=== PATIENT | male | born 1950 | race Caucasian/White ===

== ENCOUNTER 2018-06-07 11:40 | Inpatient (IN) | payer OTHER ==
[2018-06-07] MEDS ORDERED: NS 2,300 ML IV ONE (12:16)
--- NOTE | 2018-06-07 12:19 | EDPHY ---
H & P Stated Complaint: cough productive with sats 82% at pcp Time Seen by Provider: 06/07/18 12:08 HPI/ROS: CHIEF COMPLAINT: Hypoxia HISTORY OF PRESENT ILLNESS: The patient is an 89-year-old man who denies having any significant past medical history and is not on any medications. He and his have had viral type symptoms over the weekend that began on Thursday. He states that his symptoms worsened today. He presented to his primary care doctor and there was found to be 82% on room air. He did have an episode of vomiting on Thursday but has not had any nausea vomiting since. No diarrhea. No fevers. He has had sinus congestion and a mild sore throat. is also sick with similar symptoms but not as severe. Denies cardiac or pulmonary history. Severity: Moderate Modifying factors: None REVIEW OF SYSTEMS: Constitutional: denies: chills, fever, recent illness, recent injury EENTM: denies: blurred vision, double vision, nose congestion Respiratory: See HPI Cardiac: denies: chest pain, irregular heart rate, lightheadedness, palpitations Gastrointestinal/Abdominal: denies: abdominal pain, diarrhea, nausea, vomiting, blood streaked stools Genitourinary: denies: dysuria, frequency, hematuria, pain Musculoskeletal: denies: joint pain, muscle pain Skin: denies: lesions, rash, jaundice, bruising Neurological: denies: headache, numbness, paresthesia, tingling, dizziness, weakness Hematologic/Lymphatic: denies: blood clots, easy bleeding, easy bruising Immunologic/allergic: denies: HIV/AIDS, transplant 10 systems reviewed and negative except as noted EXAM: GENERAL: Well-appearing, well-nourished and in no acute distress. HEAD: Atraumatic, normocephalic. EYES: Pupils equal round and reactive to light, extraocular movements intact, sclera anicteric, conjunctiva are normal. ENT: TMs normal, nares patent, oropharynx clear without exudates. Moist mucous membranes. NECK: Normal range of motion, supple without lymphadenopathy or JVD. LUNGS: Bilateral rhonchi HEART: Regular rate and rhythm without murmurs, rubs or gallops. ABDOMEN: Soft, nontender, normoactive bowel sounds. No guarding, no rebound. No masses appreciated. BACK: No CVA tenderness, no spinal tenderness, step-offs or deformities EXTREMITIES: Normal range of motion, no pitting or edema. No clubbing or cyanosis. NEUROLOGICAL: Cranial nerves II through XII grossly intact. Normal speech, normal gait. 5/5 strength, normal movement in all extremities, normal sensation , normal reflexes PSYCH: Normal mood, normal affect. SKIN: Warm, dry, normal turgor, no visible rashes or lesions. Source: Patient, Family, RN/MD Exam Limitations: No limitations - Personal History Current Tetanus Diphtheria and Acellular Pertussis (TDAP): Yes - Medical/Surgical History Hx Asthma: No Hx Chronic Respiratory Disease: No Hx Diabetes: No Hx Cardiac Disease: No Hx Renal Disease: No Hx Cirrhosis: No Hx Alcoholism: No Hx HIV/AIDS: No Hx Splenectomy or Spleen Trauma: No Other PMH: denies - Family History Significant Family History: No pertinent family hx - Social History Smoking Status: Former smoker Alcohol Use: None Constitutional: Initial Vital Signs Temperature (C) 36.9 C 06/07/18 11:45 Heart Rate 90 06/07/18 11:45 Respiratory Rate 18 06/07/18 11:45 Blood Pressure 114/85 H 06/07/18 11:45 O2 Sat (%) 90 L 06/07/18 11:45 O2 Delivery Mode Nasal Cannula O2 (L/minute) 3 Allergies/Adverse Reactions: No Known Allergies Allergy (Verified 06/07/18 13:11) Home Medications: Medication Instructions Recorded NK [No Known Home Meds] 06/07/18 Medical Decision Making - Diagnostics Imaging: Discussed imaging studies w/ logistic specialist Radiologist ED Course/Re-evaluation: Patient has pneumonia on chest x-ray and lactate is greater than 2. Have discussed the case with Dr. Rm who will admit. Sepsis bolus ordered. Antibiotics ordered. Differential Diagnosis: Partial list of the Differential diagnosis considered include but were not limited to; pneumonia, sepsis, severe sepsis, influenza and although unlikely based on the history and physical exam, I also considered pneumothorax, acute coronary disease, PE. - Data Points Laboratory Results: Laboratory Results 06/07/18 12:20 06/07/18 12:20 06/07/18 04:22 Urine Legionella Ag Pending Ur Strep pneumoniae Ag Pending Microbiology Results: MICROBIOLOGY 06/07/18 12:20 Blood Blood Culture - Preliminary Gram Positive Cocci In Pairs 06/07/18 06:10 Sputum, Induced/Suctioned - Final 06/07/18 12:41 Blood Blood Culture - Preliminary Gram Positive Cocci In Pairs 06/07/18 12:41 Blood Blood Panel (PCR) - Final Streptococcus Pneumoniae Medications Given: Acetaminophen (Tylenol) 650 mg PO Q4HRS PRN PRN Reason: Pain, Mild/Fever, Can Take PO Stop: 12/04/18 13:17 Last Admin: 06/08/18 00:41 Dose: 650 mg Hydrocodone Bitart/Acetaminophen ([place] 5/325) 1 - 2 tab PO Q4HRS PRN PRN Reason: Pain, Moderate Able to Take PO Stop: 06/17/18 13:17 Last Admin: 06/07/18 15:41 Dose: 1 tab Albuterol (Proventil Neb) 3 ml IH Q2HRS PRN PRN Reason: Short of Breath/Dyspnea Stop: 12/04/18 13:17 Last Admin: 06/07/18 22:29 Dose: 3 ml Albuterol/Ipratropium (Duoneb) 3 ml IH QID SRIRAM Stop: 12/04/18 15:59 Last Admin: 06/08/18 11:38 Dose: 3 ml Enoxaparin Sodium (Lovenox) 40 mg SC DAILY SRIRAM Stop: 12/05/18 08:59 Last Admin: 06/08/18 08:28 Dose: Not Given Sodium Chloride (Ns) 1,000 mls @ 125 mls/hr IV CONT SRIRAM Stop: 12/04/18 13:29 Last Admin: 06/07/18 15:42 Dose: 1,000 mls Azithromycin 500 mg/ Sodium (Chloride) 255 mls @ 255 mls/hr IV DAILY SRIRAM PRN Reason: Protocol Stop: 07/08/18 08:59 Last Admin: 06/08/18 08:26 Dose: 255 mls Ceftriaxone Sodium 2 gm/ (Sodium Chloride) 50 mls @ 100 mls/hr IV DAILY SRIRAM PRN Reason: Protocol Stop: 07/08/18 08:59 Last Admin: 06/08/18 09:39 Dose: 50 mls Methylprednisolone Sodium Succinate (Solu-Medrol) 60 mg IVP Q6HRS SRIRAM Stop: 12/05/18 05:59 Last Admin: 06/08/18 11:46 Dose: 60 mg Multivitamins (Tab-A-Vianca) 1 each PO DAILY SRIRAM Stop: 12/05/18 08:59 Last Admin: 06/08/18 08:27 Dose: 1 each Discontinued Medications Albuterol (Proventil Neb) 3 ml IH ONCE ONE Stop: 06/07/18 23:32 Last Admin: 06/07/18 23:40 Dose: 3 ml Sodium Chloride (Ns) 2,300 mls @ 4,600 mls/hr 30 ml/kg infuse over 30 min ( 2300 ml) IV EDNOW ONE PRN Reason: Protocol Stop: 06/07/18 12:45 Last Admin: 06/07/18 12:42 Dose: 2,300 mls Ceftriaxone Sodium/Dextrose (Rocephin 1 Gm (Premix)) 50 mls @ 100 mls/hr IV EDNOW ONE PRN Reason: Protocol Stop: 06/07/18 13:25 Last Admin: 06/07/18 13:09 Dose: 50 mls Azithromycin 500 mg/ Sodium (Chloride) 255 mls @ 255 mls/hr IV EDNOW ONE Stop: 06/07/18 14:14 Last Admin: 06/07/18 13:38 Dose: 255 mls Ceftriaxone Sodium/Dextrose (Rocephin 1 Gm (Premix)) 50 mls @ 100 mls/hr IV DAILY SRIRAM PRN Reason: Protocol Stop: 07/08/18 08:59 Last Admin: 06/08/18 09:33 Dose: Not Given Methylprednisolone Sodium Succinate (Solu-Medrol) 125 mg IVP ONCE ONE Stop: 06/07/18 22:25 Last Admin: 06/07/18 22:51 Dose: 125 mg Temazepam (Restoril) 15 mg PO HS PRN PRN Reason: Sleep/Insomnia Stop: 12/04/18 17:11 Last Admin: 06/07/18 21:18 Dose: 15 mg Departure - Departure Disposition: [facility] Acute Clinical Impression: Severe sepsis Right lower lobe pneumonia Qualifiers: Pneumonia type: due to unspecified organism Qualified Code(s): J18.1 - Lobar pneumonia, unspecified organism Condition: Fair
[2018-06-07 12:33] LABS: PLATELET COUNT 203 10^3/uL (150-400)
[2018-06-07 12:43] LABS: INR 1.12 (0.83-1.16)
[2018-06-07] MEDS ORDERED: AZITHROMYCIN IV 500 MG in D5W 250 ML IV ONE (12:57)
[2018-06-07] MEDS ORDERED: AZITHROMYCIN IV 500 MG in NS 250 ML IV ONE (13:15)
[2018-06-07] MEDS ORDERED: HYDROCODONE/APAP 5/325 TAB PO PRN (13:18)
[2018-06-07] MEDS ORDERED: PROMETHAZINE HCL 25 MG/ML INJ IVP PRN (13:18)
[2018-06-07] MEDS ORDERED: ALBUTEROL 3 ML DEYVIAL IH PRN (13:18)
[2018-06-07] MEDS ORDERED: NS 1,000 ML IV SCH (13:30)
--- NOTE | 2018-06-07 13:45 | PDGENHP ---
History and Physical History and Physical: Chief complaint: shortness of breath, cough History of present illness: The patient is a 67-year-old male who was referred to the ED by his PCP after being seen in the clinic today and was found to have SpO2 88% on room air. The patient had developed a productive cough, fever, chills, fatigue, and vomiting 5 days ago. He complains of aching pain throughout his torso. Symptoms have progressively worsened with time and are worse with lying down at night. He complains that he has not been able to eat, drink, or sleep in 3 days because he is in so much discomfort. He denies choking on food or having symptoms of acid reflux. He has not experienced these symptoms in the past. He has not had a pneumonia or influenza vaccine in the past. He denies any known sick contacts. He recently took a course of azithromycin for post-viral bronchitis after going to an Urgent Care, but it did not help. Past medical history: Childhood asthma. Past surgical history: No known surgeries. Medications: No medications. Allergies: No known allergies. Social history: Former smoker (40py). , lives with . Retired. Alcohol - occasional use. Drugs - denies use. Family history: Alzheimer's disease, valvular heart disease. Review of systems: 10 point review of systems was conducted and is negative except per HPI Physical exam: Vitals: Reviewed General: The patient is a male who is A&Oand in mild acute distress. HEENT: normocephalic, extraocular movements intact, conjunctivae clear. Nares and oral mucosa pink and moist. Neck: trachea midline, no visible masses, no external lesions. CV: +S1/S2, reg rate and rhythm. No murmurs/rubs/gallops. Resp: unlabored breathing, lungs clear to auscultation with some rales and wheezing in the right lower lobe anteriorly and posteriorly. +chest wall tenderness and back tenderness. Abd: soft and mildly distended, bowel sounds present. + tender to palpation throughout. Musculoskeletal: Normal muscle tone and bulk. Neuro: cranial nerves II - XII grossly intact. Intact gross motor and sensory function. Psych: appropriate mood/affect. Skin: No rash or ecchymoses. : + suprapubic tenderness and + CVA tenderness. Heme/lymph: No peripheral edema. Labs: BMP pending. Lactic acid 2.4, 2.0. INR 1.12. WBC 8.4 for hemoglobin 14.8 hematocrit 41.5 platelets 203. Other Data: Chest x-ray (personally interpreted)-RLL consolidation/small pleural effusion and RML/LLL infiltrates consistent with pneumonia. Bronchitis. Impression and plan: Acute hypoxemic respiratory failure, on 3L O2 Acute community acquired pneumonia Severe Sepsis w/ MODS, 2/2 above Scoring systems - SOFAS 2, CURB65 2, PSI 86. Myalgias, diffuse - 2/2 above Insomnia, 2/2 above H/o tobacco use H/o asthma -NPO for now. Consult SENIOR QUALITY MANAGER for swallow to r/o aspiration -- if normal, may have reg diet. -IV antibiotics, maintenance IVF (s/p 2.3L bolus in ED). Pt recently took azithro which has a long half life and likely covered atypical organisms. Continue daily ceftriaxone. -Check additional labs. Pending BMP, resp panel, blood Cx. Check procalcitonin and sputum Cx. -Supplemental O2, SVNs, CPT. -Check labs in AM. -prn sleep aid, analgesic. -Reviewed outside records from PCP office. Code status: full. VTE ppx - Lovenox. Observation status.
[2018-06-07] MEDS: IPRATROPIUM/ALBUTEROL 3 ML DEYVIAL IH SCH ×2 (15:51→20:58)
[2018-06-07] MEDS ORDERED: TEMAZEPAM 15 MG CAP PO PRN (17:12)
[2018-06-07] MEDS ORDERED: methylPREDNISolone SOD SUCC 125 MG/2 ML VIAL IVP ONE (22:24)
[2018-06-07] MEDS ORDERED: methylPREDNISolone SOD SUCC 125 MG/2 ML VIAL ONE (22:26)
[2018-06-07] MEDS ORDERED: ALBUTEROL 3 ML DEYVIAL IH ONE (23:31)
--- NOTE | 2018-06-07 23:41 | HOSPPROG ---
Hospitalist Progress Note Assessment/Plan: XC: called to patient's bedside due to increasing RR and O2 needs. The patient had recently received Restoril and was sedated with a suppressed respiratory drive at the time of my evaluation. He is diffusely wheezing with very poor air movement. CXR demonstrates worsening pneumonia. I am starting IV steroids, aggressive nebulizers, and transferring to step down as he may need BIPAP support due to sedation. If he continues to worsen I will broaden antibiotics. Objective: Vital Signs Temp Pulse Resp BP Pulse Ox 36.8 C 104 H 38 H 131/78 H 92 06/07/18 20:00 06/07/18 22:31 06/07/18 22:31 06/07/18 20:00 06/07/18 22:31 Microbiology 06/07/18 15:35 Respiratory Panel (PCR) - Final Nasal, Sinus - Swab Parainfluenza Virus Type 3 06/06/18 06/07/18 06/08/18 05:59 05:59 05:59 Intake Total 3400 Balance 3400 PT 14.0 SEC (12.0-15.0) 06/07/18 12:20 INR 1.12 (0.83-1.16) 06/07/18 12:20 ICD10 Worksheet Patient Problems: Problems Problem Status Onset Right lower lobe pneumonia Acute Severe sepsis Acute
[2018-06-08] MEDS: ACETAMINOPHEN 325 MG TAB PO PRN (00:41)
[2018-06-08] MEDS: IPRATROPIUM/ALBUTEROL 3 ML DEYVIAL IH SCH ×4 (05:26→19:56)
[2018-06-08] MEDS: methylPREDNISolone SOD SUCC 125 MG/2 ML VIAL IVP SCH ×3 (05:28→16:25)
[2018-06-08 05:32] LABS: PLATELET COUNT 178 10^3/uL (150-400)
[2018-06-08] MEDS: MULTIVITAMINS 1 EACH TAB PO SCH (08:27)
[2018-06-08] MEDS: ENOXAPARIN 40 MG/0.4 ML SYR SC SCH (08:28)
[2018-06-08] MEDS ORDERED: AZITHROMYCIN IV 500 MG in NS 250 ML IV SCH (09:00)
--- NOTE | 2018-06-08 15:13 | HOSPPROG ---
Hospitalist Progress Note Assessment/Plan: The patient is a 67-year-old male who was admitted for acute community-acquired pneumonia. ASSESSMENT/PLAN: Acute hypoxemic respiratory failure, on 2L O2 Acute community acquired pneumonia - S. pneumo, Parainfluenza Probable COPD w/ exacerbation Severe Sepsis w/ MODS, 2/2 above - improving Scoring systems on admission - SOFAS 2, CURB65 2, PSI 86. Strep pneumoniae bacteremia Myalgias, diffuse - 2/2 above R chest/flank pain - 2/2 above Insomnia, 2/2 above H/o tobacco use H/o asthma -Pulm saw pt - changed ceftriaxone to Invanz. -Steroid. SVNs, O2, CPT. -Added mucolytic. -FU blood/sputum C/S results. -DC IV fluids for mild vol OL/pulm edema. -Melatonin prn insomnia. -Heating pad prn pain. VTE prophylaxis: Lovenox. Code Status: Full. Status: Changed to inpatient for > 2 midnight stay for persistent resp failure , sepsis, need for IV Abx/supplemental O2. Disposition: Med surg with discharge anticipated later this week ____ SUBJECTIVE: Last night pt had difficulty breathing after he took temazepam and CXR showed worsening PNA. Today the patient feels slightly better. He complains of pain in his right lower chest/flank. He complains of insomnia still and requests a sleep aid. OBJECTIVE: Physical Exam: General: The patient is a male who is alert and in no acute distress. HEENT: normocephalic, extraocular movements intact, conjunctivae clear. Mucous membranes moist. Neck: trachea midline, no visible masses. CV: +S1/S2, RRR, no MRG. Resp: unlabored, CTAB w/ mild rhonchi/end exp wheezing bilateral lung bases. Abd: soft and mildly distended. Nontender throughout. Musculoskeletal: Normal muscle tone/bulk. Neuro: cranial nerves II - XII grossly intact. Intact gross motor and sensory function. Psych: Appropriate mood and appropriate affect. Skin: No pallor. No petechiae. Heme/lymph: No peripheral edema at bilateral ankles. Labs/Imaging/Other Tests: Personally reviewed/interpreted. CXR last night - worsened RML infiltrate, RLL consoliation. +mild LLL infiltrate. +cephalization/Alyssa B lines. Objective: Vital Signs Temp Pulse Resp BP Pulse Ox 36.8 C 83 22 H 139/86 H 95 06/08/18 11:46 06/08/18 11:46 06/08/18 11:46 06/08/18 11:46 06/08/18 11:46 Microbiology 06/07/18 15:35 Respiratory Panel (PCR) - Final Nasal, Sinus - Swab Parainfluenza Virus Type 3 Laboratory Results 06/08/18 05:16 06/08/18 05:16 06/07/18 06/08/18 06/09/18 05:59 05:59 05:59 Intake Total 3700 Output Total 520 200 Balance 3180 -200 PT 14.0 SEC (12.0-15.0) 06/07/18 12:20 INR 1.12 (0.83-1.16) 06/07/18 12:20 - Time Spent With Patient Time Spent with Patient: greater than 35 minutes Time Spent with Patient: Greater than 35 minutes spent on this patients care, greater than 50% of time spent counseling, educating, and coordinating care regarding the above mentioned plan. ICD10 Worksheet Patient Problems: Problems Problem Status Onset Right lower lobe pneumonia Acute Severe sepsis Acute
[2018-06-08] MEDS ORDERED: guaiFENesin 200 MG/10 ML UDL PO PRN (15:15)
--- NOTE | 2018-06-08 16:16 | ASMTCMCOM ---
CM Note CM Note Notes: Pt is a 67 yo M presents with pnemonia and sepsis. is supportive. No other prior admissions to [facility]. No PT/OT are ordered at this time. 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 CM to follow. Plan: TBD Date Signed: 06/08/2018 04:15 PM Electronically Signed By:LEDY Jaime
[2018-06-08] MEDS: ERTAPENEM 1 GM in NS 100 ML IV SCH (17:03)
--- NOTE | 2018-06-08 17:59 | GCON ---
[f rep st] CONSULTATION PULMONARY CRITICAL CARE CONSULTATION. DATE OF CONSULTATION: 06/08/2018 REASON FOR CONSULTATION: Multilobar pneumococcal pneumonia. HISTORY: The patient is a pleasant 67-year-old gentleman who lives in [place]. Last week he had a viral gastroenteritis or food poisoning issue. He vomited a number of times over the weekend, but d enies senia or known aspiration. These symptoms resolved. He subsequently had increasing pulmonary congestion and cough. His has also had bronchitis, but no GI illness. The patient did smoke ci garettes for approximately 35 years, 1 pack per day, but does not carry a diagnosis of COPD. He says a chest x-ray a number years ago was negative. In the emergency department, he was found to have a patchy right-sided greater than left-sided pneumonia. He had severe sepsis and was started on the se psis protocol, given intravenous fluids, etc. He was started on azithromycin and Rocephin. He was a dmitted to a medical-surgical bed but secondary to increasing hypoxemia, there was a stat call and he was moved to the intensive care unit. He was treated more aggressively with inhaled therapies and s tarted on Solu-Medrol. He has improved. Oxygen requirements at maximum were 10 L. He is now down t o 4 L. He states he is feeling better. He is able to cough and bring up brownish sputum. PAST MEDICAL HISTORY: Unremarkable. He has no known active medical problems. MEDICATIONS: He takes no medications. SOCIAL HISTORY: He is retired but still works part-time in an [employer] based [employer] business. He zo t smoking at the age of 51. Significant alcohol is denied. FAMILY HISTORY: Noncontributory/negative. REVIEW OF SYSTEMS: A 10-point review of systems is negative. There is no history of heart disease, no history of thromboembolic disease. PHYSICAL EXAMINATION: GENERAL: Reveals a pleasant, but somewhat ill appearing gentleman who is in n o acute distress. VITAL SIGNS: Blood pressure is 138/69, respiratory rate 20. He is on 4 L of oxyg en with saturations of 96%. He is afebrile. Heart rate is 80 with sinus rhythm on the monitor. NOEL NT: Remarkable for the nasal cannula oxygen being in place. Mucous membranes are somewhat dry. The re is no jugular venous distention, lymphadenopathy, or thyromegaly. PULMONARY: The chest reveals d ecreased breath sounds bilaterally with bibasilar rales and consolidative changes on both sides. Rho nchi are present centrally. There are a few expiratory wheezes. The patient is not tight. HEART: Regular in rate and rhythm. There are no significant murmurs, no gallops. ABDOMEN: Soft and nonten jennifer. Bowel sounds are present but diminished. GENITOURINARY: No Vinson catheter is in place. He is using a urinal. Input is greater than output secondary to fluid resuscitation on admission. EXTREM ITIES: Unremarkable for edema, cords, or tenderness. NEUROLOGIC: Examination and mentation are wit hin normal limits. DATABASE: Chest x-ray shows worsening multilobar infiltrates with involvement of the right lower lob e, left lower lobe, and right upper lobe. A middle lobe infiltrate cannot be excluded. White blood cell count 7600, hematocrit 37. Platelets are 178,000. There is a shift to the left. P T and PTT were normal on admission. Initial venous lactate was 2.4 and 2.0 on repeat. Basic metabol ic panel is within normal limits with the exception of an elevated glucose of 140. Procalcitonin was elevated on admission at 54. Urinalysis showed some protein and blood. Blood cultures are positive for gram-positive cocci in pairs consistent with Strep pneumoniae. Parainfluenza virus was noted by respiratory panel. ASSESSMENT: 1. Multilobar bacteremic pneumococcal pneumonia. The patient is on appropriate antibiotics. Howeve r, there is a history of multiple episodes of vomiting. Aspiration cannot be absolutely excluded. I would like to thus cover anaerobes, as well as his pneumococcus. He is also on atypical coverage wi azithromycin. 2. Probable chronic obstructive pulmonary disease. The patient does have a significant smoking hist ory. Although he has no diagnosis of chronic obstructive pulmonary disease, he likely does have at [facility] mild disease based on his smoking history. Scheduled bronchodilator treatments and steroids are appropriate. 3. Recent vomiting, possible aspiration pneumonia? I think it would be reasonable to cover with Inv anz as opposed to Rocephin. This will give good coverage for his pneumococcus, as well as for possib le anaerobes if present. 4. Acute respiratory failure. He is not on oxygen at baseline, currently on 4 L with a maximum of 1 0 L when he was transferred to the intensive care unit. This likely was related to mucus plugging. This has improved. He is on guaifenesin, but this is p.r.n. 5. Deep venous thrombosis prophylaxis: On enoxaparin. 6. Gastrointestinal prophylaxis: None currently. He is eating. 7. Metabolic: No issues identified. PLAN AND RECOMMENDATIONS: The patient will be kept in the intensive care unit. Bronchopulmonary the rapies will be continued. Rocephin will be discontinued and ertapenem given for a bit broader covera ge. Azithromycin will be continued. Chest x-ray will be followed. Further plans and recommendations will be made based on his progress over the next 12-24 hours. /[id number]/MODL
[2018-06-08] MEDS: diphenhydrAMINE 25 MG CAP PO PRN (20:45)
[2018-06-08] MEDS: MELATONIN 3 MG TAB PO PRN (20:45)
[2018-06-09] MEDS: methylPREDNISolone SOD SUCC 125 MG/2 ML VIAL IVP SCH ×3 (00:27→20:50)
[2018-06-09] MEDS: IPRATROPIUM/ALBUTEROL 3 ML DEYVIAL IH SCH ×4 (05:33→20:07)
[2018-06-09 05:51] LABS: PLATELET COUNT 174 10^3/uL (150-400)
--- NOTE | 2018-06-09 08:10 | HOSPPROG ---
Hospitalist Progress Note Assessment/Plan: 67yo M prior smoker with no other sig pmh here with respiratory failure, severe sepsis, and Strep pna bacteremia. #Acute hypoxemic respiratory failure: Still requiring 4-5L and quite dyspneic with talking. Continue mucolytic. #Multilobar pneumonia: Strep pna and concern for aspiration. Will continue ertapenem and azithromycin for now with plan to narrow once clinically improving. #Strep pneumoniae bacteremia: Pulmonary source. Antibiotics as able. No need for repeat blood cultures. Hemodynamics stable. #Parainfluenza viral infection: Supportive care. #Acute COPD exacerbation: Continue steroids, bronchodilators. #Severe sepsis: Physiology improving. #Insomnia: Melatonin prn #H/o tobacco use VTE prophylaxis: Lovenox. Code Status: Full. Dispo: Remain inpatient. Would favor he stay in SDU another day given his respiratory status. Subjective: Overall feeling much better than when he came in. Still short of breath with minimal activity. No fevers. Coughing Objective: Vital Signs Temp Pulse Resp BP Pulse Ox 36.4 C 61 18 107/65 91 L 06/09/18 08:00 06/09/18 08:00 06/09/18 08:00 06/09/18 08:00 06/09/18 08:00 Laboratory Results 06/09/18 05:35 06/08/18 05:16 06/08/18 06/09/18 06/10/18 05:59 05:59 05:59 Intake Total 3700 750 Output Total 520 1030 Balance 3180 -280 PT 14.0 SEC (12.0-15.0) 06/07/18 12:20 INR 1.12 (0.83-1.16) 06/07/18 12:20 - Physical Exam Constitutional: no apparent distress, appears nourished Eyes: PERRL Ears, Nose, Mouth, Throat: moist mucous membranes, hearing normal, ears appear normal, no oral mucosal ulcers Cardiovascular: regular rate and rhythym, no murmur, rub, or gallop, No edema Respiratory: reduced air movement, respiratory distress (5-6 word sentences), rhonchi (diffusely) Gastrointestinal: normoactive bowel sounds, soft, non-tender abdomen, no palpable masses Genitourinary: no bladder fullness, no bladder tenderness, no renal bruits Skin: no rashes or abrasions, no fluctuance, no induration Musculoskeletal: full muscle strength, no muscle tenderness, normal joint ROM Neurologic: AAOx3, sensation intact bilaterally Psychiatric: interacting appropriately, not anxious, not encephalopathic, thought process linear ICD10 Worksheet Patient Problems: Problems Problem Status Onset Right lower lobe pneumonia Acute Severe sepsis Acute
[2018-06-09] MEDS: AZITHROMYCIN 250 MG TAB PO SCH (08:58)
[2018-06-09] MEDS: ENOXAPARIN 40 MG/0.4 ML SYR SC SCH (08:58)
[2018-06-09] MEDS: MULTIVITAMINS 1 EACH TAB PO SCH (08:58)
--- NOTE | 2018-06-09 11:20 | PDINTPN ---
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 No evidence of worsening over the last 24 hr. Remains dyspneic, hypoxemic. Good cough, able to clear secretions. On azithromycin and ertapenem along with bronchopulmonary therapies in steroids. Acute respiratory failure: Secondary to 1. Stable. Now maintaining on 4 L O2. Severe sepsis: Resolving. Aspiration pneumonia? He did vomit a number of times prior to the onset of his respiratory illness. Aspiration pneumonia less likely however I am covering him with ertapenem. Parainfluenza virus positivity: Of unclear significance. May have predisposed the patient to having a bacterial pneumonia? Prophylaxis: On enoxaparin, eating. Metabolic: No issues identified. Plan: Continue care in intensive care unit today on step-down status. Continue present antibiotics and bronchopulmonary therapies. Encourage cough. Mobilize. Decrease steroids. Two-view chest x-ray tomorrow. Follow laboratory. 30 min of critical care time spent directly with the patient. Discussed with nursing, respiratory, and the ICU multi disciplinary team. Subjective: Feels better. Remains dyspneic. Coughing up dark yellow mucus. Denies chest pain. Objective: Vital Signs Temp Pulse Resp BP Pulse Ox 36.4 C 68 16 107/65 92 06/09/18 08:00 06/09/18 10:40 06/09/18 10:40 06/09/18 08:00 06/09/18 10:40 Laboratory Results 06/09/18 05:35 06/08/18 05:16 06/08/18 06/09/18 06/10/18 05:59 05:59 05:59 Intake Total 3700 750 1000 Output Total 520 1030 200 Balance 3180 -280 800 PT 14.0 SEC (12.0-15.0) 06/07/18 12:20 INR 1.12 (0.83-1.16) 06/07/18 12:20 Physical Exam - Physical Exam General Appearance: alert, no apparent distress EENT: PERRL/EOMI, other (Nasal cannula in place at 4 L) Neck: normal inspection (No obvious JVD) Respiratory: decreased breath sounds, rales (Bibasilar rales present with consolidative changes posteriorly), rhonchi (Present with cough), No normal breath sounds, No respiratory distress, No wheezing Cardiac/Chest: regular rate, rhythm, No gallop Abdomen: normal bowel sounds, non-tender, soft Male Genitalia: other (Using urinal. Adequate urine output) Skin: normal color, warm/dry Extremities: pedal edema (Trace) Neuro/Psych: no motor/sensory deficits, No cognition abnormalities ICD10 Worksheet Patient Problems: Problems Problem Status Onset Right lower lobe pneumonia Acute Severe sepsis Acute
[2018-06-09] MEDS: ERTAPENEM 1 GM in NS 100 ML IV SCH (18:24)
[2018-06-09] MEDS: guaiFENesin 600 MG TAB.ER PO SCH (20:50)
[2018-06-09] MEDS: MELATONIN 3 MG TAB PO PRN (20:50)
[2018-06-09] MEDS: diphenhydrAMINE 25 MG CAP PO PRN (20:50)
[2018-06-09] MEDS ORDERED: methylPREDNISolone SOD SUCC 125 MG/2 ML VIAL IVP SCH (21:00)
[2018-06-10] MEDS: IPRATROPIUM/ALBUTEROL 3 ML DEYVIAL IH SCH ×4 (05:58→19:56)
--- NOTE | 2018-06-10 08:30 | HOSPPROG ---
Hospitalist Progress Note Assessment/Plan: 67yo M prior smoker with no other sig pmh here with respiratory failure, severe sepsis, and Strep pna bacteremia. #Acute hypoxemic respiratory failure: Still requiring 4-6L and quite dyspneic with talking. Continue mucolytic, flutter valve, IS. D/w Dr Schmitt #Multilobar pneumonia: Strep pna and concern for aspiration. Will continue ertapenem and azithromycin for now with plan to narrow once clinically improving. #Strep pneumoniae bacteremia: Pulmonary source. Antibiotics as above. No need for repeat blood cultures. Hemodynamics stable. #Leukocytosis: Likely driven by steroids. Monitor #Parainfluenza viral infection: Supportive care. #Acute COPD exacerbation: Switched to PO steroids, continue bronchodilators. #Severe sepsis: Physiology improved #Insomnia: Melatonin prn #H/o tobacco use VTE prophylaxis: Lovenox. Code Status: Full. Dispo: Remain inpatient. Safe for transfer to floor today. ADD in next few days. Subjective: Feeling better, still coughing up mucous. No fevers. Did well with shower this morning. CXR this AM with improving infiltrates, interpreted by me Objective: Vital Signs Temp Pulse Resp BP Pulse Ox 37.2 C 78 21 H 126/69 H 88 L 06/10/18 00:00 06/10/18 06:49 06/10/18 06:49 06/10/18 04:30 06/10/18 06:49 Laboratory Results 06/10/18 06:02 06/08/18 05:16 06/09/18 06/10/18 06/11/18 05:59 05:59 05:59 Intake Total 750 3600 Output Total 1030 950 300 Balance -280 2650 -300 PT 14.0 SEC (12.0-15.0) 06/07/18 12:20 INR 1.12 (0.83-1.16) 06/07/18 12:20 - Physical Exam Constitutional: no apparent distress, appears nourished, not in pain Eyes: PERRL, anicteric sclera, EOMI Ears, Nose, Mouth, Throat: moist mucous membranes, hearing normal, ears appear normal, no oral mucosal ulcers Cardiovascular: regular rate and rhythym, no murmur, rub, or gallop, No edema Respiratory: no respiratory distress, reduced air movement, rhonchi (bases) Gastrointestinal: normoactive bowel sounds, soft, non-tender abdomen, no palpable masses Genitourinary: no bladder fullness, no bladder tenderness, no renal bruits Skin: no rashes or abrasions, no fluctuance, no induration Musculoskeletal: full muscle strength, no muscle tenderness, normal joint ROM Neurologic: AAOx3, sensation intact bilaterally Psychiatric: interacting appropriately, not anxious, not encephalopathic, thought process linear ICD10 Worksheet Patient Problems: Problems Problem Status Onset Right lower lobe pneumonia Acute Severe sepsis Acute
[2018-06-10] MEDS: predniSONE 20 MG TAB PO SCH (10:05)
[2018-06-10] MEDS: MULTIVITAMINS 1 EACH TAB PO SCH (10:05)
[2018-06-10] MEDS: AZITHROMYCIN 250 MG TAB PO SCH (10:05)
[2018-06-10] MEDS: guaiFENesin 600 MG TAB.ER PO SCH ×2 (10:05→21:07)
[2018-06-10] MEDS: ENOXAPARIN 40 MG/0.4 ML SYR SC SCH (10:05)
[2018-06-10] MEDS: methylPREDNISolone SOD SUCC 125 MG/2 ML VIAL IVP SCH (10:06)
--- NOTE | 2018-06-10 10:58 | PDMN ---
Medical Necessity Medical necessity: MCG: M282 cPNA: acute hypoxemic resp failure req O2 2-4L - sepsis M 160 sepsis and other febrile illness - also with strep PNA bacteremia. status changed to INPT 06/08/18 for ongoing med nec- further monitorin, eval and tx needed > 2 MN
--- NOTE | 2018-06-10 12:27 | PDINTPN ---
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 Stable to improved over the last 48 hr. Remains dyspneic, hypoxemic. Good cough, able to clear secretions. On azithromycin and ertapenem along with bronchopulmonary therapies and steroids. Acute respiratory failure: Secondary to 1. Stable. Now maintaining on 4 - 6 L O2, slightly higher this morning likely secondary to mucus. Severe sepsis: Resolved. Aspiration pneumonia? He did vomit a number of times prior to the onset of his respiratory illness. Aspiration pneumonia less likely however I am covering him with ertapenem. Parainfluenza virus positivity: Of unclear significance. May have predisposed the patient to having a bacterial pneumonia? Prophylaxis: On enoxaparin, eating. Metabolic: No issues identified. Plan: Continue care. Can transfer to a medical-surgical bed. Increase mobilization. Continue oxygen. Continue present antibiotics and bronchopulmonary therapies. Encourage cough, continue IS. Decrease steroids to prednisone at 40 mg per day. Follow chest x-ray and laboratory intermittently. Regarding disposition, probably will need 1 or 2 more days in the hospital. 30 min of critical care time spent directly with the patient. Discussed with pt , nursing, respiratory, and the ICU multi disciplinary team. Subjective: Overall feels better but remains significantly short of breath with exertional activities. Continues to cough, bringing up purulent mucus. No chest pain. Objective: Vital Signs Temp Pulse Resp BP Pulse Ox 37.1 C 66 15 124/67 H 94 06/10/18 08:00 06/10/18 11:05 06/10/18 11:05 06/10/18 08:00 06/10/18 11:05 Laboratory Results 06/10/18 06:02 06/09/18 06/10/18 06/11/18 05:59 05:59 05:59 Intake Total 750 3600 Output Total 830 950 300 Balance -80 2650 -300 PT 14.0 SEC (12.0-15.0) 06/07/18 12:20 INR 1.12 (0.83-1.16) 06/07/18 12:20 CXR: Significant improvement in bilateral multi lobar infiltrates Physical Exam - Physical Exam General Appearance: alert, no apparent distress EENT: other (Nasal cannula in place at 4-6 L. ) Neck: normal inspection Respiratory: decreased breath sounds, rales (Bibasilar rales persist. Consolidative changes remain present at the right base), rhonchi (Rhonchi present with cough) Cardiac/Chest: regular rate, rhythm, No gallop Abdomen: normal bowel sounds, non-tender, soft Skin: normal color, warm/dry Extremities: pedal edema Neuro/Psych: no motor/sensory deficits, No cognition abnormalities ICD10 Worksheet Patient Problems: Problems Problem Status Onset Right lower lobe pneumonia Acute Severe sepsis Acute
[2018-06-10] MEDS: ERTAPENEM 1 GM in NS 100 ML IV SCH (18:00)
[2018-06-10] MEDS: diphenhydrAMINE 25 MG CAP PO PRN (21:08)
[2018-06-10] MEDS: MELATONIN 3 MG TAB PO PRN (21:08)
[2018-06-11] MEDS: IPRATROPIUM/ALBUTEROL 3 ML DEYVIAL IH SCH ×4 (05:15→20:48)
[2018-06-11] MEDS ORDERED: FUROSEMIDE 40 MG/4 ML VIAL IVP ONE (06:29)
--- NOTE | 2018-06-11 06:36 | HOSPPROG ---
Hospitalist Progress Note Assessment/Plan: XC: Increasing hypoxia this morning, no significant respiratory distress. CXR consistent w/ volume overload including large R pleural effusion. Will order Lasix IV. Objective: Vital Signs Temp Pulse Resp BP Pulse Ox 36.9 C 77 20 125/70 H 87 L 06/11/18 04:49 06/11/18 05:16 06/11/18 05:16 06/11/18 04:49 06/11/18 05:36 Laboratory Results 06/10/18 06:02 06/10/18 06/11/18 06/12/18 05:59 05:59 05:59 Intake Total 3600 1600 Output Total 950 1250 Balance 2650 350 PT 14.0 SEC (12.0-15.0) 06/07/18 12:20 INR 1.12 (0.83-1.16) 06/07/18 12:20 ICD10 Worksheet Patient Problems: Problems Problem Status Onset Right lower lobe pneumonia Acute Severe sepsis Acute
[2018-06-11] MEDS ORDERED: LIDOCAINE 1% 300 MG/30 ML SDV MISC ONE (09:11)
[2018-06-11] MEDS ORDERED: LIDOCAINE 2% JELLY 6 ML TOPICAL SYR TP ONE (09:11)
[2018-06-11] MEDS ORDERED: BENZOCAINE UNIT DOSE SPRAY HURRICAINE MM ONE ×2 (09:11→14:28)
--- NOTE | 2018-06-11 09:41 | HOSPPROG ---
Hospitalist Progress Note Assessment/Plan: 67yo M prior smoker with no other sig pmh here with respiratory failure, severe sepsis, and Strep pna bacteremia. Initially improving but worsening respiratory failure overnight. #Acute hypoxemic respiratory failure: Now on bipap. Worsening alveolar infiltrates (R upper/lower, L lower) with R pleural effusion on CXR (interp by me). ? mucous plug vs pulm edema. - S/p 40mg IV lasix this AM, may need additional dose later today - TTE, ECG - Pulm planning on bronch today, may need mechanical ventilation given high O2 requirements #Multilobar Streptococcal pneumonia with concern for aspiration - Will continue ertapenem and azithromycin #Strep pneumoniae bacteremia: Pulmonary source. Antibiotics as above. No need for repeat blood cultures. Hemodynamics stable. #Leukocytosis: Likely driven by steroids. Monitor #Parainfluenza viral infection: Supportive care. Droplet precautions. #Acute COPD exacerbation: Continue bronchodilators and steroids #Severe sepsis: Physiology improved #Insomnia: Melatonin prn #H/o tobacco use VTE prophylaxis: Lovenox. Code Status: Full. Dispo: Remain inpatient. Transferred back to ICU Subjective: Worsened early this AM. More hypoxemic. Placed on hi flow O2 and now bipap. He is quite tired. ABG shows large A-a gradient, significant hypoxia , respiratory alkalosis. Objective: Vital Signs Temp Pulse Resp BP Pulse Ox 37.6 C 92 25 H 129/85 H 88 L 06/11/18 07:34 06/11/18 07:45 06/11/18 07:45 06/11/18 07:34 06/11/18 07:45 Laboratory Results 06/10/18 06:02 06/10/18 06/11/18 06/12/18 05:59 05:59 05:59 Intake Total 3600 1600 Output Total 950 1250 400 Balance 2650 350 -400 PT 14.0 SEC (12.0-15.0) 06/07/18 12:20 INR 1.12 (0.83-1.16) 06/07/18 12:20 - Physical Exam Constitutional: other (tired) Eyes: PERRL, anicteric sclera Ears, Nose, Mouth, Throat: other (wearing PPV mask) Cardiovascular: regular rate and rhythym, no murmur, rub, or gallop, No edema Respiratory: reduced air movement, inspiratory crackles, respiratory distress, rhonchi, No expiratory wheeze Gastrointestinal: normoactive bowel sounds, soft, non-tender abdomen, no palpable masses Genitourinary: no bladder fullness, no bladder tenderness, no renal bruits Skin: no rashes or abrasions, no fluctuance, no induration Musculoskeletal: generalized weakness Neurologic: AAOx3 Psychiatric: interacting appropriately ICD10 Worksheet Patient Problems: Problems Problem Status Onset Right lower lobe pneumonia Acute Severe sepsis Acute
[2018-06-11] MEDS: AZITHROMYCIN 250 MG TAB PO SCH ×2 (10:11→12:21)
[2018-06-11] MEDS: predniSONE 20 MG TAB PO SCH ×2 (10:12→11:44)
[2018-06-11] MEDS: guaiFENesin 600 MG TAB.ER PO SCH ×2 (10:12→21:04)
[2018-06-11] MEDS: MULTIVITAMINS 1 EACH TAB PO SCH (10:12)
[2018-06-11] MEDS: ENOXAPARIN 40 MG/0.4 ML SYR SC SCH (11:44)
--- NOTE | 2018-06-11 12:32 | ASMTCMCOM ---
CM Note CM Note Notes: Pt became more hypoxemic this am and is now on bipap. Yesterday PT/OT cleared pt to go home with no needs; CM to follow as pt progresses medically. Pt will likely be discharged independently with outpatient support. Plan: Likely Independent, CM to follow as pt progresses medically incase needs may arise. Date Signed: 06/11/2018 12:31 PM Electronically Signed By:LEDY Jaime
--- NOTE | 2018-06-11 13:32 | ECHO ---
[email or web address] [address] [address] Main: [phone] Echocardiography Examination Transthoracic Name: REJI DISLA MR#: [id number] Study Date: 06/11/2018 Study Time: 10:40 AM Date of : 1950 Age: 67 year(s) Height: 175.3 cm (69 in.) Weight: 77.57 kg (171 lb.) BSA: 1.93 m2 Gender: Male Examination: Echo Contrast: Image Quality: Adequate Rhythm: Normal sinus rhythm Heart Rate: 85 bpm BP: 128 mmHg/85 mmHg Indication: Severe Pneumococcal pneumonia, bipap, Eval right and left heart function and eval for pericardial effusion. Procedure Staff Referring Physician: Vp Of Digital Marketing: Jermain Marx RDCS Reading Physician: Josh Chou MD Requesting Provider: Indication: Severe Pneumococcal pneumonia, bipap, Eval right and left heart function and eval for pericardial effusion. Measurements Chambers AV/MV Label Value Normal Value Label Value Normal Value IVSd, 2D 0.8 cm (0.6cm - 1.1cm) AV PGmax 7 mmHg LVDd, 2D 4.6 cm (4.2cm - 5.9cm) AV PGmean 4 mmHg LVDs, 2D 3 cm (2.1cm - 4cm) AV Vmax 1.34 m/s LVEF, 2D 65 % (54% - 74%) CHIRSTOS (continuity eq. 3 cm2 LVOT PGmax 7 mmHg Vmax) LVOT PGmean 3 mmHg CHRISTOS D (continuity eq. 3.4 cm2 LVOT Vmax 1.3 m/s (0.7m/s - 1.1m/s) VTI) LVOT Vmean 0.84 m/s MV A Vmax 0.8 m/s LVOTd 2 cm (1.9cm - 2.1cm) MV E' lateral 0.11 m/s LVPWd, 2D 0.9 cm (0.6cm - 1cm) MV E' mean 0.08 m/s RVDd, 2D 3 cm (1.9cm - 3.8cm) MV E' septal 0.05 m/s LA Volume, BP 53 ml (18ml - 58ml) MV E Vmax 0.84 m/s LAESV index, BP 27.5 ml/m2 MV E/A 1.05 Additional Vessels MV E/E' lateral 7.4 Label Value Normal Value MV E/E' mean 10.5 AoRoot, MM 3.4 cm (2.2cm - 3.7cm) MV E/E' septal 16 (0.45 - 1.25) TV/PV Label Value Normal Value PV PGmax 4 mmHg Patient: REJI DISLA Study Date: 06/11/2018 Page 1 of 2 10:40 AM PV Vmax, Caliper 1.03 m/s (0.6m/s - 0.9m/s) Conclusions Overall Conclusions: trace pericardial effusion. Preserved left ventricular systolic function. Normal mitral valve. Normal aortic valve. Normal tricuspid valve. Findings Left Ventricle: Left ventricle is normal in size. Normal global systolic left ventricular function. Left ventricle wall thickness is normal. There are no regional wall motion abnormalities. Left ventricular diastolic function parameters are normal. Right Ventricle: Normal size right ventricle. The RV function appears grossly normal. Left Atrium: The left atrium is normal in size. Right Atrium: The right atrium is normal in size. Mitral Valve: Mitral valve appears structurally normal. No significant mitral regurgitation. No mitral valve stenosis. Aortic Valve: Aortic leaflets are normal in appearance and function. No significant aortic valve regurgitation. There is no aortic stenosis. Tricuspid Valve: Tricuspid valve leaflets are normal in appearance and function. No tricuspid regurgitation. Pulmonic Valve: Pulmonic leaflets are normal in appearance and function. No pulmonic valve regurgitation is evident. Aorta: The aorta is normal. The aortic root size in M-mode measures 3.4 cm. Aorta Measurements AoRoot, MM is 3.4 cm. Pericardium: A small pericardial effusion was identified. The fluid exhibits a fibrinous appearance. Echo findings are not consistent with tamponade physiology. Exam Details Procedure Ordered: Echo Procedure Status: Routine study Image Quality: Adequate Facility Location: Cardiac Echo 1 (No Signature Object) Patient: REJI DISLA Study Date: 06/11/2018 Page 2 of 2 10:40 AM [id number]
--- NOTE | 2018-06-11 13:41 | PDINTPN ---
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 Worse today, more hypoxemic, requiring BiPAP or Vapotherm. On azithromycin and ertapenem along with bronchopulmonary therapies and steroids. Chest x-ray worse as well. Possibly secondary to mucus plugging. Will consider bronchoscopy. May end up on ventilator? Acute respiratory failure: Worse today, please see the comments as above. Possible volume overload/congestive heart failure. Given 40 mg of Lasix earlier this morning. No real improvement. Cardiac echo is within normal limits. Severe sepsis: Resolved. Aspiration pneumonia? He did vomit a number of times prior to the onset of his respiratory illness. Aspiration pneumonia less likely however I am covering him with ertapenem. Parainfluenza virus positivity: Of unclear significance. May have predisposed the patient to having a bacterial pneumonia? Prophylaxis: On enoxaparin, eating. Metabolic: No issues identified. Plan: Continue care. Transfer back to full ICU status. Continue ventilatory support with Vapotherm and/or BiPAP. Continue antibiotics and bronchopulmonary therapies. Can stop azithromycin after today. Encourage cough, continue IS. Continue prednisone at 40 mg per day. Follow chest x-ray and laboratory intermittently. 45 min of critical care time spent directly with the patient, not including bronchoscopy. Discussed with RT, nursing, hospitalist and the ICU multi disciplinary team. Subjective: More short of breath and hypoxemic this morning. Denies chest pain. Shortness of breath continues. Very fatigued. Objective: Vital Signs Temp Pulse Resp BP Pulse Ox 37.6 C 84 22 H 129/85 H 93 06/11/18 07:34 06/11/18 11:22 06/11/18 11:22 06/11/18 07:34 06/11/18 11:22 Laboratory Results 06/10/18 06:02 06/10/18 06/11/18 06/12/18 05:59 05:59 05:59 Intake Total 3600 1600 Output Total 950 1250 400 Balance 2650 350 -400 PT 14.0 SEC (12.0-15.0) 06/07/18 12:20 INR 1.12 (0.83-1.16) 06/07/18 12:20 Laboratory Tests 06/11/18 06/11/18 06:32 09:16 pCO2 39 H pO2 95 H ABG pH 7.49 H O2 Concentration % 100 Tidal Volume 600 Mode BiPAP YES POC Lactic Acid Arter 1.3 CXR: Worse this morning, with increasing infiltrates again at the lower right base, less so on the left. Cardiac echo: Normal LV and RV function. No pericardial effusion or other significant findings. Physical Exam - Physical Exam General Appearance: alert (Alert and responsive but somewhat lethargic, fatigued ), mild distress, other (On BiPAP earlier, Vapotherm currently. ) EENT: PERRL/EOMI, other (On CPAP or vapo thermal) Neck: normal inspection (No obvious JVD) Respiratory: decreased breath sounds, rales (Present at the bases, right greater than left. Consolidative changes on the right), other (On BiPAP), No respiratory distress Cardiac/Chest: regular rate, rhythm, No gallop Abdomen: non-tender, soft, No normal bowel sounds (Decreased, present) Male Genitalia: other (No Vinson catheter, using urinal) Skin: normal color, warm/dry Extremities: No pedal edema Neuro/Psych: no motor/sensory deficits (Moves all extremities weakly), No cognition abnormalities (Oriented x3 but lethargic) ICD10 Worksheet Patient Problems: Problems Problem Status Onset Right lower lobe pneumonia Acute Severe sepsis Acute
[2018-06-11] MEDS ORDERED: MIDAZOLAM 2 MG/2 ML VIAL ONE (14:27)
[2018-06-11] MEDS ORDERED: fentaNYL 100 MCG/2 ML INJ ONE (14:28)
[2018-06-11] MEDS ORDERED: LIDOCAINE 1% 300 MG/30 ML SDV ONE (14:28)
[2018-06-11] MEDS ORDERED: LIDOCAINE 2% JELLY 6 ML TOPICAL SYR ONE (14:28)
[2018-06-11] MEDS ORDERED: MIDAZOLAM 2 MG/2 ML VIAL IVP ONE (15:27)
[2018-06-11] MEDS ORDERED: fentaNYL 100 MCG/2 ML INJ IVP ONE (15:27)
--- NOTE | 2018-06-11 15:53 | GPN ---
[f rep st] PROCEDURE NOTE : THERAPEUTIC BRONCHOSCOPY DATE OF PROCEDURE: 06/11/2018 INDICATION: Increasing pulmonary infiltrates and hypoxemia in a patient with multilobar bacteremic pneumococcal pneumonia. He was significantly improved yesterday, worsened overnight. This procedure is being done to assess his airways, remove secretions if present, and obtain deep cultures. DESCRIPTION OF PROCEDURE: The procedure was done in the patient's room in the intensive care unit. Informed consent was obtained from the patient. Appropriate timeout was performed. Topical anesthesia of the oropharynx included approximately 5 cc of 1% lidocaine along with a small amount of Hurricaine spray. Conscious sedation included 2 mg of Versed and 50 mcg of fentanyl given intravenously. The fiberoptic bronchoscope was passed via bite block orally in the larynx with the patient in the sitting position. The vocal cords were identified and cannulated. The bronchoscope was advanced into the trachea and into the lower tracheobronchial tree bilaterally. There were modest secretions, right side greater than left. These were somewhat tenacious, but were removed relatively easily with suction and lavage. There were no thick or obstructing mucus plugs. Underlying endobronchial anatomy was normal to at least the first subsegmental level bilaterally. The bronchial mucosa was generally erythematous. There were no complications. Oxygen saturations on high-flow Vapotherm remained 91% or greater throughout the procedure. Cultures were sent to the lab. /[id number]/MODL MTDD
[2018-06-11] MEDS: ERTAPENEM 1 GM in NS 100 ML IV SCH (16:54)
[2018-06-11] MEDS: MELATONIN 3 MG TAB PO PRN (21:06)
[2018-06-11] MEDS: diphenhydrAMINE 25 MG CAP PO PRN (21:08)
[2018-06-12] MEDS: IPRATROPIUM/ALBUTEROL 3 ML DEYVIAL IH SCH ×4 (05:25→20:09)
[2018-06-12] MEDS: MULTIVITAMINS 1 EACH TAB PO SCH (07:58)
[2018-06-12] MEDS: predniSONE 20 MG TAB PO SCH (07:58)
[2018-06-12] MEDS: ENOXAPARIN 40 MG/0.4 ML SYR SC SCH (07:58)
[2018-06-12] MEDS: guaiFENesin 600 MG TAB.ER PO SCH ×2 (07:58→19:53)
[2018-06-12] MEDS ORDERED: PROTOCOL POTASSIUM 1 DOSE MISC PRN (09:16)
--- NOTE | 2018-06-12 09:29 | HOSPPROG ---
Hospitalist Progress Note Assessment/Plan: 67yo M prior smoker with no other sig pmh here with respiratory failure, severe sepsis, and Strep pna bacteremia. Initially improving but then worsened. #Acute hypoxemic respiratory failure: Clinically improved but still on vapotherm. CXR stable today. TTE wnl. Unclear etiology of worsening. - S/p bronchoscopy 06/11, follow up cultures - CT chest today - Trial 20mg IV lasix - Continue vapotherm #Multilobar Streptococcal pneumonia with concern for aspiration - Continue ertapenem and azithromycin #Strep pneumoniae bacteremia: Pulmonary source. Antibiotics as above. No need for repeat blood cultures. Hemodynamics stable, afebrile. #Leukocytosis: Likely driven by steroids. Monitor #Parainfluenza viral infection: Supportive care. Droplet precautions. #Acute COPD exacerbation: Continue bronchodilators and steroids although not clinically obstructed. #Severe sepsis: Physiology improved #Insomnia: Melatonin prn #H/o tobacco use VTE prophylaxis: Lovenox. Code Status: Full. Dispo: Remain inpatient in ICU. I spent a total of 30 minutes of critical care time involving this patient. Subjective: Feeling much better today. Still with high O2 requirement. CXR roughly the same, ? slight improvement (reviewed by me). Objective: Vital Signs Temp Pulse Resp BP Pulse Ox 36.7 C 78 23 H 122/74 H 88 L 06/12/18 07:52 06/12/18 07:52 06/12/18 07:52 06/12/18 07:52 06/12/18 07:52 Microbiology 06/11/18 15:35 Gram Stain - Final Bronchial Washing - Right Lower Lobe Laboratory Results 06/12/18 05:15 06/12/18 05:15 06/11/18 06/12/18 06/13/18 05:59 05:59 05:59 Intake Total 1600 649 Output Total 1250 1575 Balance 350 -926 PT 14.0 SEC (12.0-15.0) 06/07/18 12:20 INR 1.12 (0.83-1.16) 06/07/18 12:20 - Physical Exam Constitutional: no apparent distress, appears nourished, not in pain Eyes: PERRL, anicteric sclera, EOMI Ears, Nose, Mouth, Throat: moist mucous membranes, hearing normal, ears appear normal, no oral mucosal ulcers Cardiovascular: regular rate and rhythym, no murmur, rub, or gallop, No edema Respiratory: reduced air movement, rhonchi, No expiratory wheeze Gastrointestinal: normoactive bowel sounds, soft, non-tender abdomen, no palpable masses Genitourinary: shoemaker in urethra Skin: no rashes or abrasions, no fluctuance, no induration Musculoskeletal: full muscle strength, no muscle tenderness, normal joint ROM Neurologic: AAOx3, sensation intact bilaterally Psychiatric: interacting appropriately, not anxious, not encephalopathic, thought process linear Lymph, Heme, Immunologic: no cervical LAD, no supraclavicular LAD ICD10 Worksheet Patient Problems: Problems Problem Status Onset Right lower lobe pneumonia Acute Severe sepsis Acute
--- NOTE | 2018-06-12 11:54 | CPEKG ---
Test Reason : OPEN Blood Pressure : / mmHG Vent. Rate : 083 BPM Atrial Rate : 083 BPM P-R Int : 129 ms QRS Dur : 080 ms QT Int : 372 ms P-R-T Axes : 052 -01 042 degrees QTc Int : 437 ms Sinus rhythm Confirmed by Deniz Ridley ([id number]) on 06/12/2018 11:54:06 AM Referred By: Austyn Rm Confirmed By:Deniz Ridley
--- NOTE | 2018-06-12 14:22 | PDINTPN ---
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 Positive pneumococcus in blood. History of vomiting prior to onset of illness. Bacteremic pneumococcal pneumonia, multi lobar, with relative leukopenia initially. Improved initially than worsened a.m. 06/11, more hypoxemic, requiring BiPAP or Vapotherm. Chest x-ray worsened as well 06/11. Treated with azithromycin and ertapenem along with bronchopulmonary therapies and steroids from admission. Bronchoscopy 06/11 showed only a modest amount of residual secretions and normal airways. Culture growing E a alpha hemolytic strep, not strep pneumoniae. This is of unclear significance currently. Clinically significantly better again today. However, chest x-ray about the same. Will get CT scan of chest. Acute respiratory failure: Worsened yesterday requiring BiPAP or Vapotherm, better again today, please see the comments as above. Possible volume overload/congestive heart failure. Given intermittent Lasix. BNP not significantly high. Cardiac echo is in tired early within normal limits. Will hold on further diuresis for now. Severe sepsis: Resolved. Aspiration pneumonia? He did vomit a number of times prior to the onset of his respiratory illness. Aspiration pneumonia less likely however I am covering him with ertapenem. Parainfluenza virus positivity: Of unclear significance. May have predisposed the patient to having a bacterial pneumonia? Prophylaxis: On enoxaparin, eating. Metabolic: No issues identified. Plan: Continue care as ICU status today. Continue ventilatory support with Vapotherm and/or BiPAP if needed. Okay to ambulate. Continue antibiotics and bronchopulmonary therapies. Off azithromycin. Encourage cough, continue IS. Continue prednisone at 40 mg per day. Noncontrast CT scan of the chest planned for today. Follow chest x-ray and laboratory. 40 min of critical care time spent directly with the patient. Discussed with the patient and his , RT, nursing, hospitalist and the ICU multi disciplinary team. Subjective: Feels much better today compared to yesterday. Up in chair, has walked in the halls without desaturation. Remains on Vapotherm. Objective: Vital Signs Temp Pulse Resp BP Pulse Ox 36.7 C 67 17 108/61 95 06/12/18 07:52 06/12/18 12:04 06/12/18 12:04 06/12/18 10:16 06/12/18 12:04 Microbiology 06/11/18 15:35 Gram Stain - Final Bronchial Washing - Right Lower Lobe Laboratory Results 06/12/18 05:15 06/12/18 05:15 06/11/18 06/12/18 06/13/18 05:59 05:59 05:59 Intake Total 1600 649 Output Total 1250 1575 Balance 350 -926 PT 14.0 SEC (12.0-15.0) 06/07/18 12:20 INR 1.12 (0.83-1.16) 06/07/18 12:20 CXR: Persistent infiltrates, about the same as yesterday, right greater than left Physical Exam - Physical Exam General Appearance: alert, no apparent distress, other (Up in chair) EENT: PERRL/EOMI, other (Vapotherm in place: Sats 95%) Neck: normal inspection (No obvious JVD) Respiratory: decreased breath sounds, rales (Rales present bilaterally, right greater than left), rhonchi (Few rhonchi with cough), other (Consolidative changes persist on the right) Cardiac/Chest: regular rate, rhythm Abdomen: normal bowel sounds, non-tender, soft Skin: normal color, warm/dry Extremities: No pedal edema Neuro/Psych: no motor/sensory deficits, No cognition abnormalities ICD10 Worksheet Patient Problems: Problems Problem Status Onset Right lower lobe pneumonia Acute Severe sepsis Acute
[2018-06-12] MEDS: ERTAPENEM 1 GM in NS 100 ML IV SCH (17:19)
[2018-06-12] MEDS: diphenhydrAMINE 25 MG CAP PO PRN (19:52)
[2018-06-12] MEDS: MELATONIN 3 MG TAB PO PRN (19:53)
[2018-06-12] MEDS ORDERED: POTASSIUM CL 10 MEQ TAB PO ONE (20:34)
[2018-06-13] MEDS: IPRATROPIUM/ALBUTEROL 3 ML DEYVIAL IH SCH ×4 (04:36→20:36)
[2018-06-13] MEDS ORDERED: POTASSIUM CL 10 MEQ TAB PO ONE (08:00)
[2018-06-13] MEDS: guaiFENesin 600 MG TAB.ER PO SCH ×2 (08:26→20:13)
[2018-06-13] MEDS: MULTIVITAMINS 1 EACH TAB PO SCH (08:27)
[2018-06-13] MEDS: predniSONE 20 MG TAB PO SCH (08:27)
--- NOTE | 2018-06-13 08:30 | HOSPPROG ---
Hospitalist Progress Note Assessment/Plan: 67yo M prior smoker with no other sig pmh here with respiratory failure, severe sepsis, and Strep pna bacteremia. Initially improving but then worsened. #Acute hypoxemic respiratory failure: O2 requirements significantly down. TTE wnl. - S/p bronchoscopy 06/11, cultures growing alpha hemolytic Strep but not pneumoniae - unclear if pathogenic as he is improving - Continue vapotherm, wean to nasal canula as able #Multilobar Streptococcal pneumonia with concern for aspiration - Continue ertapenem, s/p course of azithromycin #Right pleural effusion - Diagnostic and therapeutic thoracentesis today, follow up results #Strep pneumoniae bacteremia: Pulmonary source. Antibiotics as above. No need for repeat blood cultures. Hemodynamics stable, afebrile. #Leukocytosis: Likely driven by steroids. Monitor #Parainfluenza viral infection: Supportive care. Droplet precautions. #Acute COPD exacerbation: Continue bronchodilators and steroids although not clinically obstructed. #Severe sepsis: Physiology improved #Insomnia: Melatonin prn #H/o tobacco use VTE prophylaxis: Lovenox. Code Status: Full. Dispo: Remain inpatient in in SDU today Subjective: Breathing much better. No fevers. Stable cough. Objective: Vital Signs Temp Pulse Resp BP Pulse Ox 37.0 C 76 19 104/55 L 91 L 06/13/18 08:00 06/13/18 08:00 06/13/18 08:00 06/13/18 08:00 06/13/18 08:00 Microbiology 06/11/18 15:35 Gram Stain - Final Bronchial Washing - Right Lower Lobe Laboratory Results 06/12/18 05:15 06/13/18 04:40 06/12/18 06/13/18 06/14/18 05:59 05:59 05:59 Intake Total 649 1050 Output Total 1575 1050 Balance -926 0 PT 14.0 SEC (12.0-15.0) 06/07/18 12:20 INR 1.12 (0.83-1.16) 06/07/18 12:20 - Physical Exam Constitutional: no apparent distress, appears nourished, not in pain Eyes: PERRL, anicteric sclera, EOMI Ears, Nose, Mouth, Throat: moist mucous membranes, hearing normal, ears appear normal, no oral mucosal ulcers Cardiovascular: regular rate and rhythym, no murmur, rub, or gallop, No edema Respiratory: reduced air movement, rhonchi Gastrointestinal: normoactive bowel sounds, soft, non-tender abdomen, no palpable masses Genitourinary: no bladder fullness, no bladder tenderness, no renal bruits Skin: other (condom cath in place) Musculoskeletal: full muscle strength Neurologic: AAOx3 Psychiatric: interacting appropriately ICD10 Worksheet Patient Problems: Problems Problem Status Onset Right lower lobe pneumonia Acute Severe sepsis Acute
--- NOTE | 2018-06-13 13:57 | PDINTPN ---
Framing Manager Progress Note Assessment/Plan: Assessment: Healthy 67-year-old admitted 06/08 with pneumonia. Positive pneumococcus in blood. History of vomiting prior to onset of illness. Bacteremic pneumococcal pneumonia, multi lobar, with relative leukopenia initially. Improved initially than worsened a.m. 06/11, more hypoxemic, requiring BiPAP or Vapotherm. Chest x-ray worsened as well 06/11. Treated with azithromycin and ertapenem along with bronchopulmonary therapies and steroids from admission. Bronchoscopy 06/11 showed only a modest amount of residual secretions and normal airways. Bronch culture growing a alpha hemolytic strep, not strep pneumoniae, of unclear significance currently. Clinically he continues to improve. Chest x-ray and CT scan of the chest shows persistent bibasilar infiltrates, but not very large. Moderate effusion on the right. For thoracentesis today. Acute respiratory failure: Worsened 06/11 requiring BiPAP or Vapotherm, but improving again since. Remains on some Vapotherm. Please see the comments as above. Possible volume overload/congestive heart failure. Given intermittent Lasix. BNP not significantly high. Cardiac echo is normal. Will hold on further diuresis for now. Severe sepsis: Resolved. Aspiration pneumonia? He did vomit a number of times prior to the onset of his respiratory illness. Aspiration pneumonia less likely however I am covering him with ertapenem. This will cover pneumococcus as well. Parainfluenza virus positivity: Of unclear significance. May have predisposed the patient to having a bacterial pneumonia? May be perpetuating his illness and hypoxemia? Prophylaxis: On enoxaparin, eating. Metabolic: No issues identified. Plan: Continue care in ICU as step-down status. Possibly to floor status tomorrow. Continue ventilatory support with Vapotherm. Okay to mobilize and ambulate ambulate. Continue antibiotics and bronchopulmonary therapies. Off azithromycin. Encourage cough, continue IS. Continue prednisone at 40 mg per day for now. Thoracentesis today Follow chest x-ray and laboratory. 30 min of critical care time spent directly with the patient, not including thoracentesis. Discussed with the patient, RT, nursing, hospitalist and the ICU multi disciplinary team. Subjective: Continues to feel better. However, remains on Vapotherm. Higher oxygen requirements briefly about 0600. Up walking in the halls maintaining saturations Objective: Vital Signs Temp Pulse Resp BP Pulse Ox 37.0 C 74 24 H 102/59 L 90 L 06/13/18 08:00 06/13/18 12:00 06/13/18 12:00 06/13/18 12:00 06/13/18 12:00 Microbiology 06/11/18 15:35 Gram Stain - Final Bronchial Washing - Right Lower Lobe Laboratory Results 06/12/18 05:15 06/13/18 04:40 06/12/18 06/13/18 06/14/18 05:59 05:59 05:59 Intake Total 649 1050 Output Total 1575 1050 Balance -926 0 PT 14.0 SEC (12.0-15.0) 06/07/18 12:20 INR 1.12 (0.83-1.16) 06/07/18 12:20 Physical Exam - Physical Exam General Appearance: alert, no apparent distress EENT: other (Vapotherm in place at 50%) Neck: normal inspection (No JVD) Respiratory: decreased breath sounds, rales (Rales at bases bilaterally. No consolidative changes), No rhonchi, No wheezing Cardiac/Chest: regular rate, rhythm Abdomen: normal bowel sounds, non-tender, soft Skin: normal color, warm/dry Extremities: No pedal edema Neuro/Psych: no motor/sensory deficits, No cognition abnormalities ICD10 Worksheet Patient Problems: Problems Problem Status Onset Right lower lobe pneumonia Acute Severe sepsis Acute
--- NOTE | 2018-06-13 17:28 | GPN ---
[f rep st] PROCEDURE NOTE PROCEDURE: Thoracentesis. Date of procedure: 06/13/2018 INDICATION: Pleural effusion in a patient with pneumococcal pneumonia. DESCRIPTION OF PROCEDURE: The procedure was performed in the patient's room in the intensive care unit. Informed consent was obtained from the patient, with risks and benefits discussed. Appropriate time-out was performed. Sterile technique was used throughout. A thoracentesis catheter was advanced into the right posterior chest via interspace 7-8 after ultrasound identified sufficient pleural fluid in that location. The patient was previously numbed with 1% lidocaine. Approximately 150 cc of clear yellow fluid was removed without difficulty. No more fluid could be removed after that amount. The catheter was withdrawn and a Band-Aid applied. There were no obvious complications. Chest x-ray is pending at the time of this dictation. Appropriate samples were sent to the lab. IMPRESSION: Successful small volume thoracentesis. /[id number]/MODL MTDD
[2018-06-13] MEDS: ENOXAPARIN 40 MG/0.4 ML SYR SC SCH (17:40)
[2018-06-13] MEDS: ERTAPENEM 1 GM in NS 100 ML IV SCH (18:22)
[2018-06-14] MEDS: IPRATROPIUM/ALBUTEROL 3 ML DEYVIAL IH SCH ×4 (04:26→21:10)
[2018-06-14] MEDS: MULTIVITAMINS 1 EACH TAB PO SCH (10:02)
[2018-06-14] MEDS: ENOXAPARIN 40 MG/0.4 ML SYR SC SCH (10:02)
[2018-06-14] MEDS: guaiFENesin 600 MG TAB.ER PO SCH ×2 (10:02→20:14)
[2018-06-14] MEDS: predniSONE 20 MG TAB PO SCH (10:02)
--- NOTE | 2018-06-14 12:17 | ASMTCMCOM ---
CM Note CM Note Notes: Patient had emergency Bronchoscopy Endo today. Continue patient care in ICU as step down status. Clinically improving.Discharge plan remains independent with outpatient support. CM will follow for patient progress and any needs that might arise. Date Signed: 06/14/2018 12:17 PM Electronically Signed By:Britney Altamirano LCSW
--- NOTE | 2018-06-14 14:55 | PDINTPN ---
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 Positive pneumococcus in blood. History of vomiting prior to onset of illness. Bacteremic pneumococcal pneumonia, multi lobar, with relative leukopenia initially. Improved initially than worsened a.m. 06/11, more hypoxemic, requiring BiPAP or Vapotherm. Chest x-ray worsened as well 06/11. Treated with azithromycin and ertapenem along with bronchopulmonary therapies and steroids from admission. Bronchoscopy 06/11 showed only a modest amount of residual secretions and normal airways. Bronch culture growing a alpha hemolytic strep, not strep pneumoniae, of unclear significance currently. Clinically he continues to improve. Chest x-ray and CT scan of the chest shows persistent bibasilar infiltrates, but not very large. Small-moderate effusion and right. PH 7.2 on thoracentesis from 06/13. No organisms seen Acute respiratory failure: Worsened 06/11 requiring BiPAP or Vapotherm, but improving again since. Changed from Vapotherm to nasal cannula. Please see the comments as above. Possible volume overload/congestive heart failure. Given intermittent Lasix. BNP not significantly high. Cardiac echo is normal. Will hold on further diuresis for now. Severe sepsis: Resolved. Aspiration pneumonia? He did vomit a number of times prior to the onset of his respiratory illness. Aspiration pneumonia less likely however I am covering him with ertapenem. This will cover pneumococcus as well. Parainfluenza virus positivity: Of unclear significance. May have predisposed the patient to having a bacterial pneumonia? May be perpetuating his illness and hypoxemia? Prophylaxis: On enoxaparin, eating. Plan: Can transfer to floor status. Continue ventilatory support with Vapotherm. Okay to mobilize and ambulate ambulate. Continue antibiotics and bronchopulmonary therapies. Off azithromycin. Encourage cough, continue IS. Reduced prednisone to 20 mg per day. Follow chest x-ray and laboratory. 06/14/18 14:59 Subjective: Feels better, increased strength. Appetite good. Denies pain. Less short of breath. Objective: Vital Signs Temp Pulse Resp BP Pulse Ox 36.9 C 85 16 107/65 94 06/14/18 11:43 06/14/18 11:55 06/14/18 11:55 06/14/18 11:43 06/14/18 11:55 Microbiology 06/11/18 15:35 Gram Stain - Final Bronchial Washing - Right Lower Lobe Bronchial Culture - Final 06/13/18 13:30 Gram Stain - Final Pleural Fluid - Aspirate Laboratory Results 06/14/18 04:40 06/14/18 04:40 06/13/18 06/14/18 06/15/18 05:59 05:59 05:59 Intake Total 1050 560 Output Total 1050 1900 Balance 0 -1340 PT 14.0 SEC (12.0-15.0) 06/07/18 12:20 INR 1.12 (0.83-1.16) 06/07/18 12:20 Laboratory Tests 06/13/18 13:30 Pleural pH 7.2 Pleural Glucose 29 L Microbiology 06/13/18 13:30 Pleural Fluid - Aspirate Gram Stain - Final: NOS Physical Exam - Physical Exam General Appearance: alert, no apparent distress EENT: normal ENT inspection Neck: normal inspection Respiratory: decreased breath sounds (Right base), crackles (Bibasilar) Cardiac/Chest: regular rate, rhythm, No edema Abdomen: normal bowel sounds, non-tender Skin: normal color, warm/dry Extremities: normal inspection Neuro/Psych: alert, normal mood/affect, oriented x 3 ICD10 Worksheet Patient Problems: Problems Problem Status Onset Right lower lobe pneumonia Acute Severe sepsis Acute
--- NOTE | 2018-06-14 15:39 | HOSPPROG ---
Hospitalist Progress Note Assessment/Plan: 67yo M prior smoker with no other sig pmh here with respiratory failure, severe sepsis, and Strep pna bacteremia. Initially improving but then worsened. #Acute hypoxemic respiratory failure: O2 requirements significantly down. TTE wnl. - S/p bronchoscopy 06/11, cultures growing alpha hemolytic Strep but not pneumoniae - unclear significance - Off vapotheram - Wean as able, currently on high flow nasal canula 6-8L #Multilobar Streptococcal pneumonia with concern for aspiration - Continue ertapenem, s/p course of azithromycin #Right pleural effusion: S/p thoracentesis. Parapneumonic. No indication for chest tube. #Strep pneumoniae bacteremia: Pulmonary source. Antibiotics as above. No need for repeat blood cultures. Hemodynamics stable, afebrile. #Leukocytosis: Likely driven by steroids. Monitor #Parainfluenza viral infection: Supportive care. Droplet precautions. #Acute COPD exacerbation: Continue bronchodilators. Decreased steroid dose 06/14. #Severe sepsis: Physiology improved #Insomnia: Melatonin prn #H/o tobacco use VTE prophylaxis: Lovenox. Code Status: Full. Dispo: Stable for transfer to floor Subjective: Breathing continues to improve. Off vapotherm. Minimal cough. No fevers. Had BM, eating ok. Objective: Vital Signs Temp Pulse Resp BP Pulse Ox 36.9 C 85 16 107/65 94 06/14/18 11:43 06/14/18 11:55 06/14/18 11:55 06/14/18 11:43 06/14/18 11:55 Microbiology 06/13/18 13:30 Gram Stain - Final Pleural Fluid - Aspirate 06/11/18 15:35 Gram Stain - Final Bronchial Washing - Right Lower Lobe Bronchial Culture - Final Laboratory Results 06/14/18 04:40 06/14/18 04:40 06/13/18 06/14/18 06/15/18 05:59 05:59 05:59 Intake Total 1050 560 Output Total 1050 1900 Balance 0 -1340 PT 14.0 SEC (12.0-15.0) 06/07/18 12:20 INR 1.12 (0.83-1.16) 06/07/18 12:20 - Physical Exam Constitutional: no apparent distress, appears nourished, not in pain Eyes: PERRL, anicteric sclera, EOMI Ears, Nose, Mouth, Throat: moist mucous membranes, hearing normal, ears appear normal, no oral mucosal ulcers Cardiovascular: regular rate and rhythym, no murmur, rub, or gallop, No edema Respiratory: no respiratory distress, reduced air movement (bases), rhonchi ( bases) Gastrointestinal: normoactive bowel sounds, soft, non-tender abdomen, no palpable masses Genitourinary: no bladder fullness, no bladder tenderness, no renal bruits Skin: no rashes or abrasions, no fluctuance, no induration Musculoskeletal: full muscle strength, no muscle tenderness, normal joint ROM Neurologic: AAOx3, sensation intact bilaterally Psychiatric: interacting appropriately, not anxious, not encephalopathic, thought process linear ICD10 Worksheet Patient Problems: Problems Problem Status Onset Right lower lobe pneumonia Acute Severe sepsis Acute
[2018-06-14] MEDS ORDERED: POTASSIUM CL 10 MEQ TAB PO ONE (15:47)
[2018-06-14] MEDS: ERTAPENEM 1 GM in NS 100 ML IV SCH (18:08)
[2018-06-15] MEDS: MELATONIN 3 MG TAB PO PRN (02:06)
[2018-06-15] MEDS: ACETAMINOPHEN 325 MG TAB PO PRN ×2 (02:11→11:24)
[2018-06-15] MEDS: IPRATROPIUM/ALBUTEROL 3 ML DEYVIAL IH SCH ×4 (05:41→21:15)
[2018-06-15] MEDS ORDERED: POTASSIUM CL 10 MEQ TAB PO ONE (08:00)
[2018-06-15] MEDS: MULTIVITAMINS 1 EACH TAB PO SCH (08:48)
[2018-06-15] MEDS: predniSONE 20 MG TAB PO SCH (08:49)
[2018-06-15] MEDS: ENOXAPARIN 40 MG/0.4 ML SYR SC SCH (08:49)
[2018-06-15] MEDS: guaiFENesin 600 MG TAB.ER PO SCH ×2 (08:49→20:14)
--- NOTE | 2018-06-15 14:20 | HOSPPROG ---
Hospitalist Progress Note Assessment/Plan: 67yo M prior smoker with no other sig pmh here with respiratory failure, severe sepsis, and Strep pna bacteremia. Initially improving but then worsened requiring bipap and vapotherm. Now on high flow nasal canula. #Acute hypoxemic respiratory failure: O2 requirements stable but not improved since yesterday. On 8L heated high flow. - TTE wnl, bnp low, no significant change w/diuresis earlier in hospital stay - CXR today (06/15) with slightly worse consolidations RML and RLL - S/p bronchoscopy 06/11 w/negative cultures - If not improving tomorrow, would consider repeat chest CT to eval #Fever: Overnight 06/15. Not septic. Unclear etiology, abx appropriate to cover pulm infection. No other localizing s/s of infection elsewhere. - Antbiotics per below - If fevers again, check blood cultures - Repeat cbc in AM #Multilobar Streptococcal pneumonia with concern for aspiration - Stop ertapenem (s/p 7 days), start IV unasyn 3g q6h #Right pleural effusion: S/p thoracentesis. Parapneumonic. No indication for chest tube based on studies. #Strep pneumoniae bacteremia: Pulmonary source. Antibiotics as above. No need for repeat blood cultures. Will need 10-14 days of abx. #Parainfluenza viral infection: Supportive care. Droplet precautions. #Acute COPD exacerbation: Continue bronchodilators. Decreased steroid dose 06/14. #Severe sepsis: Physiology improved #Insomnia: Melatonin prn #H/o tobacco use VTE prophylaxis: Lovenox. Code Status: Full. Dispo: Remain inpatient Subjective: Continues to feel quite well despite high O2 needs. Up a few times. Minimal cough. He did fever last night, woke up drenched in sweat. Objective: Vital Signs Temp Pulse Resp BP Pulse Ox 37.3 C 83 20 102/62 92 06/15/18 12:50 06/15/18 12:50 06/15/18 12:50 06/15/18 12:50 06/15/18 12:50 Microbiology 06/13/18 13:30 Gram Stain - Final Pleural Fluid - Aspirate 06/11/18 15:35 Gram Stain - Final Bronchial Washing - Right Lower Lobe Bronchial Culture - Final Laboratory Results 06/14/18 04:40 06/15/18 06:00 06/14/18 06/15/18 06/16/18 05:59 05:59 05:59 Intake Total 560 1500 Output Total 1900 525 Balance -1340 975 PT 14.0 SEC (12.0-15.0) 06/07/18 12:20 INR 1.12 (0.83-1.16) 06/07/18 12:20 - Physical Exam Constitutional: no apparent distress, appears nourished, not in pain Eyes: PERRL, anicteric sclera, EOMI Ears, Nose, Mouth, Throat: moist mucous membranes, hearing normal, ears appear normal, no oral mucosal ulcers Cardiovascular: regular rate and rhythym, no murmur, rub, or gallop, No edema Respiratory: no respiratory distress, reduced air movement, rhonchi (right and left bases), No expiratory wheeze, No inspiratory crackles Gastrointestinal: normoactive bowel sounds, soft, non-tender abdomen, no palpable masses Genitourinary: no bladder fullness, no bladder tenderness, no renal bruits Skin: no rashes or abrasions, no fluctuance, no induration Musculoskeletal: full muscle strength, no muscle tenderness, normal joint ROM Neurologic: AAOx3, sensation intact bilaterally Psychiatric: interacting appropriately, not anxious, not encephalopathic, thought process linear ICD10 Worksheet Patient Problems: Problems Problem Status Onset Right lower lobe pneumonia Acute Severe sepsis Acute
--- NOTE | 2018-06-15 17:23 | PDINTPN ---
Top Screw Progress Note Assessment/Plan: Assessment: Assessment: Healthy 67-year-old admitted 06/08 with pneumonia. Positive pneumococcus in blood. History of vomiting prior to onset of illness. Bacteremic pneumococcal pneumonia, multi lobar, with relative leukopenia initially. Improved initially than worsened a.m. 06/11, more hypoxemic, requiring BiPAP or Vapotherm. Chest x-ray worsened as well 06/11. Treated with azithromycin and ertapenem along with bronchopulmonary therapies and steroids from admission. Bronchoscopy 06/11 showed only a modest amount of residual secretions and normal airways. Bronch culture growing a alpha hemolytic strep, not strep pneumoniae, of unclear significance currently. Clinically he continues to improve. Chest x-ray and CT scan of the chest shows persistent bibasilar infiltrates, but not very large. Small-moderate effusion and right. PH 7.2 on thoracentesis from 06/13. No organisms seen Today he is afebrile, white blood count down, feels better, oxygen needs down a bit, but is chest x-ray is a bit worse. Severe sepsis: Resolved. Aspiration pneumonia? He did vomit a number of times prior to the onset of his respiratory illness. Aspiration pneumonia less likely however I am covering him with ertapenem. This will cover pneumococcus as well. Parainfluenza virus positivity: Of unclear significance. May have predisposed the patient to having a bacterial pneumonia? May be perpetuating his illness and hypoxemia? Prophylaxis: On enoxaparin, eating. Plan: Complete 10-14 days of antibiotics. Okay to mobilize and ambulate ambulate. Encourage cough, continue IS. Reduced prednisone to 20 mg per day. Repeat chest x-ray 06/1706/15/18 17:22 Subjective: Feels better, improved strength, less dyspnea. Objective: Vital Signs Temp Pulse Resp BP Pulse Ox 36.9 C 69 16 120/63 92 06/15/18 16:00 06/15/18 16:50 06/15/18 16:50 06/15/18 16:00 06/15/18 16:50 Microbiology 06/13/18 13:30 Gram Stain - Final Pleural Fluid - Aspirate 06/11/18 15:35 Gram Stain - Final Bronchial Washing - Right Lower Lobe Bronchial Culture - Final Laboratory Results 06/14/18 04:40 06/15/18 06:00 06/14/18 06/15/18 06/16/18 05:59 05:59 05:59 Intake Total 560 1500 Output Total 1900 525 Balance -1340 975 PT 14.0 SEC (12.0-15.0) 06/07/18 12:20 INR 1.12 (0.83-1.16) 06/07/18 12:20 Chest x-ray: Increased density right base. Images reviewed by me. Physical Exam - Physical Exam General Appearance: alert, no apparent distress EENT: normal ENT inspection Neck: normal inspection Respiratory: crackles (bases) Cardiac/Chest: regular rate, rhythm, No edema Abdomen: normal bowel sounds, non-tender Skin: normal color, warm/dry Extremities: normal inspection Neuro/Psych: alert, normal mood/affect, oriented x 3 ICD10 Worksheet Patient Problems: Problems Problem Status Onset Right lower lobe pneumonia Acute Severe sepsis Acute
[2018-06-15] MEDS: AMPICILLIN/SULBACTAM 3 GM in NS 100 ML IV SCH (18:21)
[2018-06-16] MEDS: AMPICILLIN/SULBACTAM 3 GM in NS 100 ML IV SCH ×3 (00:05→12:42)
[2018-06-16] MEDS: ACETAMINOPHEN 325 MG TAB PO PRN (05:04)
[2018-06-16] MEDS: IPRATROPIUM/ALBUTEROL 3 ML DEYVIAL IH SCH ×4 (06:01→20:40)
[2018-06-16] MEDS: MULTIVITAMINS 1 EACH TAB PO SCH (09:03)
[2018-06-16] MEDS: guaiFENesin 600 MG TAB.ER PO SCH ×2 (09:03→22:08)
[2018-06-16] MEDS: predniSONE 20 MG TAB PO SCH (09:03)
[2018-06-16] MEDS: ENOXAPARIN 40 MG/0.4 ML SYR SC SCH (09:03)
--- NOTE | 2018-06-16 13:32 | PDCONSULT ---
[employer] Note: Infectious Diseases Consult Note Impression: 67-year-old man with a prolonged hospitalization secondary to pneumococcal pneumonia with bloodstream infection and parainfluenza virus type 3 infection. Highly suspect his fever over the past 2 days is related to immune reconstitution, likely directed towards the parainfluenza virus recovered at admission with tapering corticosteroid doses. The likelihood is that his illness started with an upper respiratory tract infection with parainfluenza virus and was secondarily infected with Streptococcus pneumoniae. Utilization of systemic corticosteroids likely resulted in extension of the viral infection from the upper respiratory tract into the lower respiratory tract which is why his oxygen requirements remain and likely why he has developed fevers. It is quite common for viral pneumonia is to have prolonged and protracted course particularly manifesting as new oxygen requirements. He will likely clear this virus as the steroids are tapered and with time. It is notable that at the time of admission he did not mount a leukocytosis response until day 3 of hospital admission which may have been related to the Co infection with parainfluenza virus on top of his bacterial infection; he also did not present a febrile response until the 2 days prior to this consultation. His blunted response does raise concern that he has and on revealed immunodeficiency; he verbally consented to HIV testing. Development of aspiration pneumonia would be unlikely in the setting of receiving broadly acting antibiotic and ertapenem as this effectively would have prevented bacterial growth although this would not have prevented pneumonitis from developing. Moreover, ceftriaxone has excellent activity against oral anaerobes including streptococcal species, peptostreptococcus species, and fusobacterium species would not add additional spectrum as it is unlikely that he has developed a true bacterial aspiration pneumonia on top of his current infections. 1. Hospital onset fever, likely immune reconstitution directed towards parainfluenza virus type 3 from tapering corticosteroids 2. Hypoxia likely secondary to ongoing lower respiratory tract viral replication 3. Community onset pneumonia secondary to Streptococcus pneumoniae without antimicrobial resistance 4. Likely parainfluenza virus type 3 lower respiratory tract infection 5. Immunocompromised patient due to corticosteroid use Plan: 1. Stop amp/sulbactam 2. Start ceftriaxone 1gm daily 3. Repeat viral respiratory panel 4. Check HIV Ag/Ab test with AM labs 5. Repeat LFTs to ensure down-trend 6. Reviewed in detail potential side effects of beta-lactam antibiotics to include: allergy, rash, nausea, antibiotic-associated diarrhea, Clostridioides difficile colitis. Maximilian Pathak MD Infectious Diseases Chief Complaint: Cough and shortness of breath at admission Requesting Provider: Dr. Bailey Reason for Referral: Consultation was requested by Dr. Bailey regarding antimicrobial management. HPI: 67-year-old man who presented to hospital with an approximate 2 week preceding illness with a nonproductive cough and worsening shortness of breath. Upon admission he was diagnosed has pneumococcal pneumonia with pneumococcal bloodstream infection. This was also in the setting of recovery of parainfluenza virus type 3 from a nasopharyngeal swab. Initially admitted to the ICU with hypoxia but he did improve over the course of the 1st few days. He has had ongoing oxygen requirement and cough but he overall feels improved since admission. Upon admission he was treated with methyl prednisolone in tapering doses starting 06/07 in 125 mg x1 dose followed by 60 mg Q 6 hr the following day, followed by 80 mg total given on 06/09 decreased to prednisone at 40 mg from 06/10 to 06/14, he is now on prednisone 20 mg per day starting 06/14; he did have overlapping doses on 06/14 with 40 mg dose given in the morning and 20 mg dose given in the evening. His antibiotics were initially ceftriaxone from sleep 06/07 to 06/08 in addition to azithromycin from 06/07 to 06/11. On he was changed to ertapenem which he received through 06/14. Starting on 06/15 he was changed to ampicillin/sulbactam due to a new fever and concern for aspiration. Patient notes that approximately 48 hr prior to this consultation he developed fever with chills for the 1st time since admission. This was not associated with increasing shortness of breath or an increase in his cough. He has also not developed diarrhea since admission and has no abdominal pain. He notes no rash, myalgias, arthralgias. He feels his breathing is no worse over the past few days but notes that they turn his oxygen up at night. Reviewed patient medical records in [facility], and [facility] ([facility] Past Medical History: Childhood asthma Past Surgical History: No previous surgeries Social History: Does not use tobacco products currently, quit many years ago; Does not consume marijuana products; Drinks alcohol socially; Does not use any other drugs currently or in the past Family History: No family members with recurrent infections Allergies: NKDA Medications: Reviewed in medical record. ROS: 10 organ systems reviewed; pertinent positives and negatives listed in the HPI, all other organ systems negative. Physical Exam: VS: Reviewed Gen: No acute distress; Breathing comfortably with supplemental oxygen via face mask; Able to speak in complete sentences Eyes: No conjunctival injection; No scleral icterus HENT: No gross deformities Neck: No limitation in range of motion Pulm: Audible inspiratory sounds to the base on the left, diminished inspiratory sounds at the right base; crackles in the left posterior mid lung field extending to the base; No wheeze or rhonchi CV: Normal S1 and S2; Regular rate and rhythm; No murmurs, rubs, or gallops; No lower extremity edema Abd: Not distended; Normo-active bowel sounds; Soft; Non-tender Skin: A full skin exam including exposed bilateral upper extremities, bilateral lower extremities to the knees, face, neck, abdomen, chest, and back performed; Skin intact, warm, with no rash MSK: Joints without erythema or edema; No gross limitation in range of motion Ext: No clubbing or cyanosis Neuro: Awake and alert Psych: Normal mood and blunted affect Labs/Imaging: All microbiology testing (culture and non-culture) reviewed in the medical record. Personally reviewed and interpreted the images of the following radiographs: Chest x-ray from 06/07 revealing right lower lobe infiltrates with right-sided pleural effusion; chest x-ray from 06/10 revealing patchy right lower lobe infiltrates with persisting right-sided pleural effusion; chest x-ray from showing right pleural effusion worsened obscuring underlying parenchymal lung disease seen on previous x-rays; chest CT on 06/12 showing small area of left upper lobe ground-glass opacity, small right pleural effusion extending to the upper lobe area with moderate right pleural effusion extending down to the base, scattered ground-glass opacities bilaterally from the apex is to the bases , right lower lobe parenchymal infiltrates with consolidation, left lower lobe dense infiltrates. Medications Generic Name Dose Route Start Last Admin Trade Name Freq PRN Reason Stop Dose Admin Ampicillin Sodium/Sulbactam 100 mls @ 200 mls/hr 06/15/18 18:00 06/16/18 12: 42 Sodium 3 gm/ Sodium Chloride IV 07/15/18 17:59 100 mls Q6 [facility] Prednisone 20 mg 06/14/18 15:01 06/16/18 09:03 Prednisone PO 12/07/18 09:59 20 mg DAILY SRIRAM Discontinued Medications Generic Name Dose Route Start Last Admin Trade Name David BRYANTN Reason Stop Dose Admin Azithromycin 500 mg 06/09/18 09:00 06/11/18 12:21 Zithromax PO 06/12/18 23:59 500 mg DAILY [facility] Ceftriaxone Sodium 2 gm/ 50 mls @ 100 mls/hr 06/08/18 09:00 06/08/18 09:39 Sodium Chloride IV 07/08/18 08:59 50 mls DAILY [facility] Protocol Ertapenem 1 gm/ Sodium 100 mls @ 200 mls/hr 06/08/18 17:00 06/14/18 18:08 Chloride IV 07/08/18 16:59 100 mls Q24H [facility] Protocol Azithromycin 500 mg/ Sodium 255 mls @ 255 mls/hr 06/07/18 13:15 06/07/18 13: 38 Chloride IV 06/07/18 14:14 255 mls EDNOW ONE Azithromycin 500 mg/ Sodium 255 mls @ 255 mls/hr 06/08/18 09:00 06/08/18 08: 26 Chloride IV 07/08/18 08:59 255 mls DAILY [facility] Protocol Ceftriaxone Sodium/Dextrose 50 mls @ 100 mls/hr 06/07/18 12:56 06/07/18 13:09 Rocephin 1 Gm (Premix) IV 06/07/18 13:25 50 mls EDNOW ONE Protocol Methylprednisolone Sodium Succinate 125 mg 06/07/18 22:24 06/07/18 22:51 Solu-Medrol IVP 06/07/18 22:25 125 mg ONCE ONE Methylprednisolone Sodium Succinate 60 mg 06/08/18 06:00 06/09/18 05:51 Solu-Medrol IVP 12/05/18 05:59 60 mg Q6HRS [facility] Methylprednisolone Sodium Succinate 40 mg 06/09/18 21:00 06/10/18 10:06 Solu-Medrol IVP 12/06/18 20:59 Not Given Q12HRS [facility] Prednisone 40 mg 06/10/18 10:00 06/14/18 10:02 Prednisone PO 12/07/18 09:59 40 mg DAILY [facility] Microbiology 06/13/18 13:30 Pleural Fluid - Aspirate Gram Stain - Final 06/11/18 15:35 Bronchial Washing - Right Lower Lobe Gram Stain - Final 06/11/18 15:35 Bronchial Washing - Right Lower Lobe Bronchial Culture - Final 06/07/18 15:35 Nasal, Sinus - Swab Respiratory Panel (PCR) - Final Parainfluenza Virus Type 3 06/07/18 12:41 Blood Blood Culture - Final 06/07/18 12:41 Blood Blood Panel (PCR) - Final Streptococcus Pneumoniae Streptococcus Pneumoniae 06/07/18 12:20 Blood Blood Culture - Final Streptococcus Pneumoniae 06/07/18 06:10 Sputum, Induced/Suctioned - Final 06/07/18 06:10 Sputum, Induced/Suctioned Sputum Culture - Final 06/13/18 13:30 Pleural Fluid - Aspirate Anaerobic Culture - Preliminary Laboratory Tests 06/07/18 06/08/18 06/09/18 04:22 05:16 05:35 WBC 7.68 14.66 H Creatinine Urine Legionella Ag Negative Ur Strep pneumoniae Ag Positive H 06/10/18 06/14/18 06/16/18 06:02 04:40 04:18 WBC 19.79 H Creatinine 0.7 0.8 Urine Legionella Ag Ur Strep pneumoniae Ag 06/16/18 04:18 WBC 17.75 H Creatinine Urine Legionella Ag Ur Strep pneumoniae Ag Ongoing monitoring for antimicrobial toxicity with: CBC, BMP. [id number] time with patient: 67 minutes with >50% of [id number] time spent in counseling, patient education, and coordinating care. Counseling provided included the microbiology of pneumococcal pneumonia, parainfluenza virus infections, risk for progression from upper respiratory viral infection to lower respiratory tract infection in the setting of systemic corticosteroids, expected time to resolution, natural history without treatment, and side effects of treatment.
--- NOTE | 2018-06-16 15:37 | HOSPPROG ---
Hospitalist Progress Note Assessment/Plan: 67yo M prior smoker with no other sig pmh here with respiratory failure, severe sepsis, and Strep pna bacteremia. Initially improving but then worsened requiring bipap and vapotherm. Now on high flow nasal canula. #Acute hypoxemic respiratory failure: O2 requirements stable but not improved since yesterday. On 8L heated high flow. - TTE wnl, bnp low, no significant change w/diuresis earlier in hospital stay - CXR today (06/16) with slightly improved consolidations RML and RLL - S/p bronchoscopy 06/11 w/negative cultures #Fever: Overnight 06/15. Not septic. Unclear etiology, abx appropriate to cover pulm infection. No other localizing s/s of infection elsewhere. Likely viral syndrome in setting of decreased steroid dose - Consulted ID this AM, await recommendations - If fevers again, check blood cultures - Continue to monitor CBC #Multilobar Streptococcal pneumonia with concern for aspiration - Stop ertapenem (s/p 7 days), started IV unasyn 3g q6h, ID consult as above #Right pleural effusion: S/p thoracentesis. Parapneumonic. No indication for chest tube based on studies. #Strep pneumoniae bacteremia: Pulmonary source. Antibiotics as above. #Parainfluenza viral infection: Supportive care. Droplet precautions. #Acute COPD exacerbation: Continue bronchodilators. Decreased steroid dose 06/14. #Severe sepsis: Physiology improved #Insomnia: Melatonin prn #H/o tobacco use VTE prophylaxis: Lovenox. Code Status: Full. Dispo: Remain inpatient Subjective: Pt reports SOB this AM Objective: Vital Signs Temp Pulse Resp BP Pulse Ox 36.7 C 83 20 93/60 L 85 L 06/16/18 08:00 06/16/18 11:16 06/16/18 11:16 06/16/18 08:00 06/16/18 11:16 Microbiology 06/13/18 13:30 Gram Stain - Final Pleural Fluid - Aspirate Laboratory Results 06/16/18 04:18 06/16/18 04:18 06/15/18 06/16/18 06/17/18 05:59 05:59 05:59 Intake Total 1500 600 100 Output Total 525 400 300 Balance 975 200 -200 PT 14.0 SEC (12.0-15.0) 06/07/18 12:20 INR 1.12 (0.83-1.16) 06/07/18 12:20 - Physical Exam Constitutional: chronically ill appearing Eyes: PERRL Ears, Nose, Mouth, Throat: moist mucous membranes Cardiovascular: regular rate and rhythym Respiratory: reduced air movement, rhonchi Gastrointestinal: soft, non-tender abdomen Skin: warm Musculoskeletal: full muscle strength Neurologic: AAOx3 Psychiatric: interacting appropriately ICD10 Worksheet Patient Problems: Problems Problem Status Onset Right lower lobe pneumonia Acute Severe sepsis Acute
--- NOTE | 2018-06-16 16:21 | PDINTPN ---
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 Positive pneumococcus in blood. History of vomiting prior to onset of illness. Bacteremic pneumococcal pneumonia, multi lobar, with relative leukopenia initially. Improved initially than worsened a.m. 06/11, more hypoxemic, requiring BiPAP or Vapotherm. Chest x-ray worsened as well 06/11. Treated with azithromycin and ertapenem along with bronchopulmonary therapies and steroids from admission. Bronchoscopy 06/11 showed only a modest amount of residual secretions and normal airways. Bronch culture growing a alpha hemolytic strep, not strep pneumoniae, of unclear significance currently. Clinically he continues to improve. Chest x-ray and CT scan of the chest shows persistent bibasilar infiltrates, but not very large. Small-moderate effusion and right. PH 7.2 on thoracentesis from 06/13. No organisms seen Today he is afebrile, white blood count down, feels better, oxygen needs down a bit, but is chest x-ray is a bit worse. Severe sepsis: Resolved. Aspiration pneumonia? He did vomit a number of times prior to the onset of his respiratory illness. Aspiration pneumonia less likely however I am covering him with ertapenem. This will cover pneumococcus as well. Parainfluenza virus positivity: Of unclear significance. May have predisposed the patient to having a bacterial pneumonia? May be perpetuating his illness and hypoxemia? Prophylaxis: On enoxaparin, eating. Plan: Complete 10-14 days of antibiotics. Okay to mobilize and ambulate. Encourage cough, continue IS. Reduced prednisone to 20 mg per day. Repeat chest x-ray 06/1706/16/18 16:20 Subjective: The patient reports that he feels a bit better, with less shortness of breath. He did have some sputum production today. Objective: Vital Signs Temp Pulse Resp BP Pulse Ox 36.8 C 84 18 102/69 94 06/16/18 15:50 06/16/18 15:50 06/16/18 15:50 06/16/18 15:50 06/16/18 15:50 Microbiology 06/13/18 13:30 Gram Stain - Final Pleural Fluid - Aspirate Laboratory Results 06/16/18 04:18 06/16/18 04:18 06/15/18 06/16/18 06/17/18 05:59 05:59 05:59 Intake Total 1500 600 100 Output Total 525 400 450 Balance 975 200 -350 PT 14.0 SEC (12.0-15.0) 06/07/18 12:20 INR 1.12 (0.83-1.16) 06/07/18 12:20 Chest x-ray: Improved right basilar opacities, now similar to 2 days ago. Images reviewed by me. Physical Exam - Physical Exam General Appearance: alert, no apparent distress EENT: normal ENT inspection Neck: normal inspection Respiratory: decreased breath sounds (Right base), crackles (Left base) Cardiac/Chest: regular rate, rhythm, No edema Abdomen: normal bowel sounds, non-tender Skin: normal color, warm/dry Extremities: normal inspection Neuro/Psych: alert, normal mood/affect, oriented x 3 ICD10 Worksheet Patient Problems: Problems Problem Status Onset Right lower lobe pneumonia Acute Severe sepsis Acute
[2018-06-17 04:53] LABS: PLATELET COUNT 400 10^3/uL (150-400)
[2018-06-17] MEDS: IPRATROPIUM/ALBUTEROL 3 ML DEYVIAL IH SCH ×4 (05:22→20:28)
[2018-06-17] MEDS: CEPACOL LOZENGE PO PRN ×2 (06:20→20:13)
[2018-06-17] MEDS ORDERED: POTASSIUM CL 10 MEQ TAB PO ONE ×2 (09:32→09:45)
[2018-06-17] MEDS: predniSONE 20 MG TAB PO SCH (09:44)
[2018-06-17] MEDS: ENOXAPARIN 40 MG/0.4 ML SYR SC SCH (09:44)
[2018-06-17] MEDS: guaiFENesin 600 MG TAB.ER PO SCH ×2 (09:44→20:13)
[2018-06-17] MEDS: MULTIVITAMINS 1 EACH TAB PO SCH (09:44)
--- NOTE | 2018-06-17 11:50 | HOSPPROG ---
Hospitalist Progress Note Assessment/Plan: 67yo M prior smoker with no other sig pmh here with respiratory failure, severe sepsis, and Strep pna bacteremia. Initially improving but then worsened requiring bipap and vapotherm. Now on high flow nasal canula. #Acute hypoxemic respiratory failure: O2 requirements stable. On 8L high flow. - TTE wnl, bnp low, no significant change w/diuresis earlier in hospital stay - CXR (06/16) with slightly improved consolidations RML and RLL - S/p bronchoscopy 06/11 w/negative cultures #Multilobar Streptococcal pneumonia with concern for aspiration - Stop ertapenem (s/p 7 days), started IV unasyn 3g q6h, ID consulted on 06/16 who recommended transitioning to Ceftriaxone, appreciate recs #Fever: Overnight 06/15. Not septic. Unclear etiology, abx appropriate to cover pulm infection. No other localizing s/s of infection elsewhere. Likely viral syndrome in setting of decreased steroid dose - Consulted ID - If fevers again, check blood cultures - Continue to monitor CBC #Transaminitis - AST/ALT increased overnight - Possible SE of antibiotics - ID ordering Hepatitis serologies - Will order RUQ U/S this AM to further evaluate - Continue to monitor LFTs #Right pleural effusion: S/p thoracentesis. Parapneumonic. No indication for chest tube based on studies. #Strep pneumoniae bacteremia: Pulmonary source. Antibiotics as above. #Parainfluenza viral infection: Supportive care. Droplet precautions. #Acute COPD exacerbation: Continue bronchodilators. Decreased steroid dose 06/14. #Severe sepsis: Physiology improved #Insomnia: Melatonin prn #H/o tobacco use VTE prophylaxis: Lovenox. Code Status: Full. Dispo: Remain inpatient Subjective: Pt reports no complaints this AM Objective: Vital Signs Temp Pulse Resp BP Pulse Ox 36.8 C 84 20 111/64 91 L 06/17/18 07:42 06/17/18 11:03 06/17/18 11:03 06/17/18 07:42 06/17/18 11:03 Microbiology 06/16/18 15:40 Respiratory Panel (PCR) - Final Nasal, Sinus - Swab No Organism Detected By Pcr 06/13/18 13:30 Gram Stain - Final Pleural Fluid - Aspirate Laboratory Results 06/17/18 04:36 06/17/18 04:36 06/16/18 06/17/18 06/18/18 05:59 05:59 05:59 Intake Total 600 550 Output Total 400 1275 100 Balance 200 -725 -100 PT 14.0 SEC (12.0-15.0) 06/07/18 12:20 INR 1.12 (0.83-1.16) 06/07/18 12:20 - Physical Exam Constitutional: no apparent distress Eyes: PERRL Ears, Nose, Mouth, Throat: moist mucous membranes Cardiovascular: regular rate and rhythym Respiratory: no respiratory distress, reduced air movement Gastrointestinal: soft, non-tender abdomen Genitourinary: No shoemaker in urethra Skin: warm Musculoskeletal: full muscle strength Neurologic: AAOx3 Psychiatric: interacting appropriately ICD10 Worksheet Patient Problems: Problems Problem Status Onset Right lower lobe pneumonia Acute Severe sepsis Acute
--- NOTE | 2018-06-17 12:17 | PCMIDPN ---
Assessment/Plan: Assessment: 67-year-old man with community onset pneumonia secondary to Streptococcus pneumoniae and Co infection with parainfluenza virus type 3. He has plateaued in his recovery with ongoing supplemental oxygen requirement that is likely a combination of extensive pulmonary inflammation from bacterial pneumonia, probable viral pneumonia, and right-sided pleural effusion. Transaminase elevation is likely related to trans diaphragmatic inflammatory spillover on to the liver, but will ensure that he has hepatitis C virus negative in that he is not someone who had a cold hepatitis B virus infection that is reactivated in the setting of systemic corticosteroids. Corticosteroids themselves can cause a mild transaminase elevation and these are being tapered. 1. Hospital onset fever, resolved 2. Hypoxia likely secondary to extensive pulmonary inflammation related to pneumonia possible ongoing lower respiratory tract viral replication 3. Community onset pneumonia secondary to Streptococcus pneumoniae without antimicrobial resistance 4. Streptococcus pneumoniae bloodstream infection secondary to 3. 5. Probable parainfluenza virus type 3 lower respiratory tract infection, stable 6. Immunocompromised patient due to a systemic corticosteroids 7. Transaminase elevation, persistent 8. Leukocytosis, likely secondary to corticosteroids an evolving pneumonia; slow improvement Plan: 1. Continue ceftriaxone 1 g daily; planned stop date of antibacterial therapy will be 06/21/2018, oral step-down therapy at discharge if prior to this date 2. Repeat CMP and CBC with differential tomorrow 3. HIV testing pending 4. Will add hepatitis C virus antibody and hepatitis B virus testing to tomorrow 's labs 5. Prednisone taper per hospitalist service Maximilian Pathak MD Infectious Diseases 06/17/18 12:21 Subjective: No fever overnight. Poor sleep generally sees not aware of whether he reaches deep sleep and then is awake again. No shortness of breath at rest with supplemental oxygen. He desires to get up and walk more but needs assistance from staff. His is at bedside who states that she would be happy to assist him with walking. Objective: Vital Signs Temp Pulse Resp BP Pulse Ox 36.8 C 84 20 111/64 91 L 06/17/18 07:42 06/17/18 11:03 06/17/18 11:03 06/17/18 07:42 06/17/18 11:03 Microbiology 06/13/18 13:30 Gram Stain - Final Pleural Fluid - Aspirate 06/16/18 15:40 Respiratory Panel (PCR) - Final Nasal, Sinus - Swab No Organism Detected By Pcr Laboratory Results 06/17/18 04:36 06/17/18 04:36 06/16/18 06/17/18 06/18/18 05:59 05:59 05:59 Intake Total 600 550 Output Total 400 1275 100 Balance 200 -725 -100 Medications Generic Name Dose Route Start Last Admin Trade Name David PRN Reason Stop Dose Admin Ceftriaxone Sodium/Dextrose 50 mls @ 100 mls/hr 06/16/18 18:00 06/16/18 18:09 Rocephin 1 Gm (Premix) IV 07/16/18 17:59 50 mls [id number] [facility] Protocol Microbiology 06/16/18 15:40 Nasal, Sinus - Swab Respiratory Panel (PCR) - Final No Organism Detected By Pcr 06/13/18 13:30 Pleural Fluid - Aspirate Gram Stain - Final 06/11/18 15:35 Bronchial Washing - Right Lower Lobe Gram Stain - Final 06/11/18 15:35 Bronchial Washing - Right Lower Lobe Bronchial Culture - Final 06/07/18 15:35 Nasal, Sinus - Swab Respiratory Panel (PCR) - Final Parainfluenza Virus Type 3 06/07/18 12:41 Blood Blood Culture - Final 06/07/18 12:41 Blood Blood Panel (PCR) - Final Streptococcus Pneumoniae Streptococcus Pneumoniae 06/07/18 12:20 Blood Blood Culture - Final Streptococcus Pneumoniae 06/13/18 13:30 Pleural Fluid - Aspirate Anaerobic Culture - Preliminary Laboratory Tests 06/07/18 06/07/18 06/09/18 04:22 12:20 05:35 WBC Hgb Immature Gran # Not Reported INR 1.12 HIV (1&2) Ag & Ab Refer Urine Legionella Ag Negative Ur Strep pneumoniae Ag Positive H 06/12/18 06/17/18 06/17/18 05:15 04:36 04:36 WBC 20.18 H 16.64 H Hgb 12.7 L 11.2 L Immature Gran # INR HIV (1&2) Ag & Ab Refer Pending Urine Legionella Ag Ur Strep pneumoniae Ag Personally reviewed the images and interpreted the following radiographs: Chest x-ray from today which shows possible worsening of right-sided pleural effusion - Physical Exam General Appearance: no apparent distress, non-toxic EENT: No scleral icterus Respiratory: other (Breathing comfortably), No respiratory distress, No accessory muscle use Neck: supple Extremities: No erythema Skin: No erythema Neuro/Psych: alert, oriented x 3, depressed affect, No confused - Time Spent With Patient Time Spent with Patient: greater than 25 minutes Time Spent with Patient: Greater than 25 minutes spent on this patients care, greater than 50% of time spent counseling, educating, and coordinating care regarding the above mentioned plan. ICD10 Worksheet Patient Problems: Problems Problem Status Onset Right lower lobe pneumonia Acute Severe sepsis Acute
--- NOTE | 2018-06-17 13:32 | PDINTPN ---
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 Positive pneumococcus in blood. History of vomiting prior to onset of illness. Bacteremic pneumococcal pneumonia, multi lobar, with relative leukopenia initially. Improved initially than worsened a.m. 06/11, more hypoxemic, requiring BiPAP or Vapotherm. Chest x-ray worsened as well 06/11. Treated with azithromycin and ertapenem along with bronchopulmonary therapies and steroids from admission. Bronchoscopy 06/11 showed only a modest amount of residual secretions and normal airways. Bronch culture growing a alpha hemolytic strep, not strep pneumoniae, of unclear significance currently. Clinically he continues to improve. Chest x-ray and CT scan of the chest shows persistent bibasilar infiltrates, but not very large. Small-moderate effusion and right. PH 7.2 on thoracentesis from 06/13. No organisms seen Today he is afebrile x 48 hours, white blood count down slightly from yesterday , feels better, oxygen needs stable, but is chest x-ray his a bit worse. Severe sepsis: Resolved. Aspiration pneumonia? He did vomit a number of times prior to the onset of his respiratory illness. Aspiration pneumonia less likely however I am covering him with ertapenem. This will cover pneumococcus as well. Parainfluenza virus positivity: Of unclear significance. May have predisposed the patient to having a bacterial pneumonia? May be perpetuating his illness and hypoxemia? Prophylaxis: On enoxaparin, eating. Plan: Complete 10-14 days of antibiotics. Okay to mobilize and ambulate. Encourage cough, continue IS. Reduced prednisone to 20 mg per day. Follow white blood count. Recheck chest x-ray in a few days 06/17/18 13:31 Subjective: Continues to feel better, with increased strength. Still has some cough with clear sputum. Sleeping poorly. Objective: Vital Signs Temp Pulse Resp BP Pulse Ox 36.8 C 84 20 111/64 91 L 06/17/18 07:42 06/17/18 11:03 06/17/18 11:03 06/17/18 07:42 06/17/18 11:03 Microbiology 06/13/18 13:30 Gram Stain - Final Pleural Fluid - Aspirate 06/16/18 15:40 Respiratory Panel (PCR) - Final Nasal, Sinus - Swab No Organism Detected By Pcr Laboratory Results 06/17/18 04:36 06/17/18 04:36 06/16/18 06/17/18 06/18/18 05:59 05:59 05:59 Intake Total 600 550 Output Total 400 1275 100 Balance 200 -725 -100 PT 14.0 SEC (12.0-15.0) 06/07/18 12:20 INR 1.12 (0.83-1.16) 06/07/18 12:20 Chest x-ray: Increased right basilar density compared to 06/16, similar to 06/15. Images reviewed by me. Physical Exam - Physical Exam General Appearance: alert, no apparent distress EENT: normal ENT inspection Neck: normal inspection Respiratory: crackles (Both bases) Cardiac/Chest: regular rate, rhythm, No edema Abdomen: normal bowel sounds, non-tender Skin: normal color, warm/dry Extremities: normal inspection Neuro/Psych: alert, normal mood/affect, oriented x 3 ICD10 Worksheet Patient Problems: Problems Problem Status Onset Right lower lobe pneumonia Acute Severe sepsis Acute
[2018-06-17] MEDS: MELATONIN 3 MG TAB PO PRN (20:38)
[2018-06-17] MEDS: SODIUM CL NASAL 45 ML BTL EACHNARE PRN (20:38)
[2018-06-18] MEDS: SODIUM CL NASAL 45 ML BTL EACHNARE PRN (04:55)
[2018-06-18] MEDS: CEPACOL LOZENGE PO PRN ×2 (04:55→21:25)
[2018-06-18] MEDS: IPRATROPIUM/ALBUTEROL 3 ML DEYVIAL IH SCH ×4 (05:02→20:24)
[2018-06-18 05:25] LABS: PLATELET COUNT 479 10^3/uL (150-400)
--- NOTE | 2018-06-18 06:31 | HOSPPROG ---
Hospitalist Progress Note Assessment/Plan: Hospitalist night float note Notified by RN that patient with a sudden increase in oxygen as needs. He was transitioned to OxyMask at 15 liters/minute and saturating 84%. Earlier in the evening he was requiring 7-8 L. Overall patient is well appearing despite his measured hypoxia. He also notes that he would prefer not to transfer as he feels quite well. Patient's vital signs are otherwise within normal limits. His O2 has improved to 90% on 15 L by OxyMask. Will transition patient to a non -rebreather mask at this time and obtain a chest x-ray. GEN - no acute distress. Patient is sitting upright in bed watching TV. He appears quite comfortable and awake alert oriented x3. CV-regular rate and rhythm. Unable to appreciate any murmur due to high flow of oxygen at this time. Respiratory-quite diminished at the bases. No wheezes or rhonchi. Patient without any acute respiratory distress. Will hold off on transfer at this time. Obtain chest x-ray this morning. Objective: Vital Signs Temp Pulse Resp BP Pulse Ox 37.2 C 85 16 121/67 H 87 L 06/18/18 04:39 06/18/18 05:03 06/18/18 05:03 06/18/18 04:39 06/18/18 05:03 Microbiology 06/13/18 13:30 Gram Stain - Final Pleural Fluid - Aspirate Laboratory Results 06/18/18 04:48 06/18/18 04:48 06/17/18 06/18/18 06/19/18 05:59 05:59 05:59 Intake Total 550 500 Output Total 1275 675 Balance -725 -175 PT 14.0 SEC (12.0-15.0) 06/07/18 12:20 INR 1.12 (0.83-1.16) 06/07/18 12:20 ICD10 Worksheet Patient Problems: Problems Problem Status Onset Right lower lobe pneumonia Acute Severe sepsis Acute
[2018-06-18 06:45] LABS: HEPATITIS B SURFACE ANTIGEN NEGATIVE (NEGATIVE)
[2018-06-18 07:08] LABS: HEPATITIS B CORE AB TOTAL NEGATIVE (NEGATIVE); HEPATITIS C ANTIBODY TOTAL NEGATIVE (NEGATIVE)
--- NOTE | 2018-06-18 09:25 | ASMTCMCOM ---
CM Note CM Note Notes: CM met with pt to provide support and education on discharge planning. CM spoke with MD and RN. Pt continues on IV antibiotics but states he believes he will be discharged on oral. Pt did say he was agreeable with [facility] and [facility] home infusion services if needed. Pt continues to have high oxygen needs. Will be discharged on home O2, RT aware. CM to follow as pt continues to have medical needs. Plan: Home with O2 vs home with IV antibiotics if indicated. Date Signed: 06/18/2018 09:24 AM Electronically Signed By:LEDY Jaime
[2018-06-18] MEDS: predniSONE 20 MG TAB PO SCH (10:39)
[2018-06-18] MEDS ORDERED: IOPAMIDOL (ISOVUE-300) 100 ML BTL ONE (11:43)
[2018-06-18] MEDS: MULTIVITAMINS 1 EACH TAB PO SCH (12:35)
[2018-06-18] MEDS: guaiFENesin 600 MG TAB.ER PO SCH ×2 (12:35→21:25)
[2018-06-18] MEDS: ENOXAPARIN 40 MG/0.4 ML SYR SC SCH (12:36)
[2018-06-18] MEDS ORDERED: HEPARIN 10,000 UNIT/10 ML MDV (1,000 UNIT/ML) IVP ONE ×2 (13:36→14:15)
[2018-06-18] MEDS ORDERED: HEPARIN 10,000 UNIT/10 ML MDV (1,000 UNIT/ML) IVP PRN (13:36)
--- NOTE | 2018-06-18 14:17 | PCMIDPN ---
Assessment/Plan: # Pneumococcal PNA and bacteremia with associated parapneumonic effusion, AF since 06/15. Slow to resolve hypoxia now likely related to pulmonary emboli ID'd on abdominal CT today. --continue ceftriaxone # Parainfluenza: droplet precautions, unclear how to interpret repeat resp PCR that is negative, would continue droplet for now # Leukocytosis: due to PNA, bacteremia, gradually improving # Elevated LFTs, reviewed right upper quadrant ultrasound and CT , no causal source ID to on imaging. LFTs continue to trend up, could consider etiology of beta lactams. Rec'd ceftriaxone 06/07,06/08 then ertapenem then back to ceftriaxone 06/16 when LFTs were checked for first time and slightly elevated. LFTs continue to increase, consider delayed increase related to sepsis but also could consider side effect to B lactam, as above. --repeat LFTs in AM if continues to elevated consider abx switch Microbiology 06/11/18 15:35 Bronchial Washing -RML: Neg 06/07/18 15:35 Nasal, Sinus - Parainfluenza Virus Type 3 06/07/18 12:41 Blood Cx 04/17: Streptococcus Pneumoniae 06/13/18 13:30 Pleural Fluid - Aspirate CX NGTD Meds, Abx #9 ceftriaxone 1gm IV daily Subjective: patient feels like he is breathing better denies GI symptoms appetite good no itching or rash Objective: Vital Signs Temp Pulse Resp BP Pulse Ox 36.8 C 86 19 122/69 H 92 06/18/18 08:00 06/18/18 08:00 06/18/18 08:00 06/18/18 08:00 06/18/18 08:00 Microbiology 06/13/18 13:30 Gram Stain - Final Pleural Fluid - Aspirate Laboratory Results 06/18/18 04:48 06/18/18 04:48 06/17/18 06/18/18 06/19/18 05:59 05:59 05:59 Intake Total 550 500 Output Total 9827 024 175 [facility] -596 -873 -662 - Physical Exam General Appearance: alert, no apparent distress Respiratory: crackles, wheezing (Occasional) Neck: supple Cardiac/Chest: regular rate, rhythm Extremities: No pedal edema Abdomen: non-tender, soft, distended (Slight), other (No right upper quadrant pain to deep palpation), No peritoneal signs Male Genitalia: No shoemaker Skin: pallor, No jaundice, No rash Neuro/Psych: alert, normal mood/affect, oriented x 3 - Time Spent With Patient Time Spent with Patient: greater than 35 minutes Time Spent with Patient: Greater than 35 minutes spent on this patients care, greater than 50% of time spent counseling, educating, and coordinating care regarding the above mentioned plan. ICD10 Worksheet Patient Problems: Problems Problem Status Onset Right lower lobe pneumonia Acute Severe sepsis Acute
[2018-06-18 15:01] LABS: PLATELET COUNT 475 10^3/uL (150-400)
[2018-06-18 15:09] LABS: INR 1.09 (0.83-1.16); PROTIME(PATIENT) 13.7 SEC (12.0-15.0)
[2018-06-18] MEDS: HEPARIN/DEXTROSE 500 ML IV SCH (15:54)
--- NOTE | 2018-06-18 17:06 | PDINTPN ---
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 Positive pneumococcus in blood. History of vomiting prior to onset of illness. Bacteremic pneumococcal pneumonia, multi lobar, with relative leukopenia initially. Improved initially than worsened a.m. 06/11, more hypoxemic, requiring BiPAP or Vapotherm. Chest x-ray worsened as well 06/11. Treated with azithromycin and ertapenem along with bronchopulmonary therapies and steroids from admission. Bronchoscopy 06/11 showed only a modest amount of residual secretions and normal airways. Bronch culture growing a alpha hemolytic strep, not strep pneumoniae, of unclear significance currently. Clinically he continues to improve. Chest x-ray and CT scan of the chest shows persistent bibasilar infiltrates, but not very large. Small-moderate effusion and right. PH 7.2 on thoracentesis from 06/13. No organisms seen. Today he is afebrile x 3 days, white blood count continues to trend down, feels better, oxygen needs stable, but is chest x-ray his a bit worse. He is currently on ceftriaxone Severe sepsis: Resolved. Aspiration pneumonia? He did vomit a number of times prior to the onset of his respiratory illness. Aspiration pneumonia less likely, but was treated with ertapenem. Parainfluenza virus positivity: Of unclear significance. May have predisposed the patient to having a bacterial pneumonia? May be perpetuating his illness and hypoxemia? PE: Small volume right greater than left, although the entire lung was not imaged. Plan: Complete antibiotics per ID. IV heparin. Okay to mobilize and ambulate. Encourage cough, continue IS. Continue prednisone at 20 mg per day. Follow white blood count. Consider repeat right thoracentesis to try to improve respiratory status. 06/18/18 17:06 Subjective: Feels better, with decreased dyspnea Objective: Vital Signs Temp Pulse Resp BP Pulse Ox 36.8 C 75 18 122/69 H 92 06/18/18 08:00 06/18/18 15:27 06/18/18 15:27 06/18/18 08:00 06/18/18 15:27 Microbiology 06/13/18 13:30 Gram Stain - Final Pleural Fluid - Aspirate Laboratory Results 06/18/18 14:50 06/18/18 04:48 06/17/18 06/18/18 06/19/18 05:59 05:59 05:59 Intake Total 550 500 Output Total 1275 675 175 Balance -725 -175 -175 PT 13.7 SEC (12.0-15.0) 06/18/18 14:50 INR 1.09 (0.83-1.16) 06/18/18 14:50 CT abdomen: Bibasilar areas of consolidation with small left and moderate right pleural effusions. Small volume pulmonary emboli in the right lower lobe. Images reviewed by me. Physical Exam - Physical Exam General Appearance: alert, no apparent distress EENT: normal ENT inspection Neck: normal inspection Respiratory: decreased breath sounds, crackles Cardiac/Chest: regular rate, rhythm, No edema Abdomen: normal bowel sounds, non-tender Skin: normal color, warm/dry Extremities: normal inspection Neuro/Psych: alert, normal mood/affect, oriented x 3 ICD10 Worksheet Patient Problems: Problems Problem Status Onset Right lower lobe pneumonia Acute Severe sepsis Acute
--- NOTE | 2018-06-18 17:46 | HOSPPROG ---
Hospitalist Progress Note Assessment/Plan: 67yo M prior smoker with no other sig pmh here with respiratory failure, severe sepsis, and Strep pna bacteremia. Initially improving but then worsened requiring bipap and vapotherm. Now on high flow nasal canula. #Acute hypoxemic respiratory failure: O2 requirements stable. On 8L high flow. - TTE wnl, bnp low, no significant change w/diuresis earlier in hospital stay - CXR (06/16) with slightly improved consolidations RML and RLL - S/p bronchoscopy 06/11 w/negative cultures - FOund to have PE today, started on Hep gtt #PE - Seen on Abdominal CT this afternoon - Started on Heparin gtt for - Plan to convert to oral AC tomorrow #Multilobar Streptococcal pneumonia with concern for aspiration - Stop ertapenem (s/p 7 days), started IV unasyn 3g q6h, ID consulted on 06/16 who recommended transitioning to Ceftriaxone, appreciate recs #Fever: Overnight 06/15. Not septic. Unclear etiology, abx appropriate to cover pulm infection. No other localizing s/s of infection elsewhere. Likely viral syndrome in setting of decreased steroid dose - Consulted ID - If fevers again, check blood cultures - Continue to monitor CBC #Transaminitis - AST/ALT significantly increased overnight - Possible SE of antibiotics - Hepatitis serologies negative - RUQ U/S performed on 06/17 showed galbladder slude, possible liver mass - Abd CT performed this AM showing likely fatty focal infiltration, no acute etiology for transaminitis - Continue to monitor LFTs #Right pleural effusion: S/p thoracentesis. Parapneumonic. No indication for chest tube based on studies. Consider repeat thoracentesis per pulmonology. #Strep pneumoniae bacteremia: Pulmonary source. Antibiotics as above. #Parainfluenza viral infection: Supportive care. Droplet precautions. #Acute COPD exacerbation: Continue bronchodilators. Decreased steroid dose 06/14. #Severe sepsis: Physiology improved #Insomnia: Melatonin prn #H/o tobacco use VTE prophylaxis: Hep gtt Code Status: Full. Dispo: Remain inpatient Subjective: Pt reports no complaints this AM Objective: Vital Signs Temp Pulse Resp BP Pulse Ox 36.7 C 78 18 116/63 95 06/18/18 16:00 06/18/18 16:00 06/18/18 15:27 06/18/18 16:00 06/18/18 16:00 Microbiology 06/13/18 13:30 Gram Stain - Final Pleural Fluid - Aspirate Laboratory Results 06/18/18 14:50 06/18/18 04:48 06/17/18 06/18/18 06/19/18 05:59 05:59 05:59 Intake Total 550 500 850 Output Total 1275 675 175 Balance -725 -175 675 PT 13.7 SEC (12.0-15.0) 06/18/18 14:50 INR 1.09 (0.83-1.16) 06/18/18 14:50 - Physical Exam Constitutional: chronically ill appearing Eyes: PERRL Ears, Nose, Mouth, Throat: moist mucous membranes Cardiovascular: regular rate and rhythym Respiratory: reduced air movement Gastrointestinal: soft, non-tender abdomen Skin: warm Musculoskeletal: full muscle strength Neurologic: AAOx3 Psychiatric: interacting appropriately ICD10 Worksheet Patient Problems: Problems Problem Status Onset Right lower lobe pneumonia Acute Severe sepsis Acute
[2018-06-18] MEDS: MELATONIN 3 MG TAB PO PRN (21:25)
[2018-06-19] MEDS: IPRATROPIUM/ALBUTEROL 3 ML DEYVIAL IH SCH ×4 (05:35→21:56)
[2018-06-19] MEDS: HEPARIN/DEXTROSE 500 ML IV SCH (07:40)
[2018-06-19] MEDS: guaiFENesin 600 MG TAB.ER PO SCH ×2 (09:03→20:54)
[2018-06-19] MEDS: predniSONE 20 MG TAB PO SCH (09:03)
[2018-06-19] MEDS: MULTIVITAMINS 1 EACH TAB PO SCH (09:03)
--- NOTE | 2018-06-19 12:15 | PCMIDPN ---
Assessment/Plan: 1. Invasive pneumococcal infection with bacteremia and multifocal pneumonia with right parapneumonic effusion status post thoracentesis: He is much better. Given extent of infection, would treat for 14 days total of antibiotics. (4 more days). As outlined by Dr. Tam yesterday, the patient was found to have a pulmonary embolus, likely contributing to his persistent hypoxia. HIV negative. 2. History of parainfluenza 3: Agree that droplet precautions should be continued until the patient goes home. 3. Isolated transaminitis: Improving. Subjective: "I feel great."Just walked around with nurse and did 9 laps! No diarrhea on the antibiotics. Minimal cough. No sore throat. No discomfort when he takes a deep breath. Objective: Ceftriaxone 1 g IV daily day 10 No fevers, T-max 37.2 degrees 93% on 9 L Vital Signs Temp Pulse Resp BP Pulse Ox 36.9 C 83 12 120/67 93 06/19/18 07:47 06/19/18 11:10 06/19/18 11:10 06/19/18 07:47 06/19/18 11:10 Microbiology 06/13/18 13:30 Gram Stain - Final Pleural Fluid - Aspirate Laboratory Results 06/18/18 14:50 06/19/18 05:04 06/18/18 06/19/18 06/20/18 05:59 05:59 05:59 Intake Total 500 900 Output Total 675 1475 Balance -175 -575 Laboratory Tests 06/18/18 06/18/18 06/19/18 04:48 04:48 05:04 AST 248 H ALT 467 H Hep Bs Antigen NEGATIVE Hep Bs Antibody Pending Hep B Core Total Ab NEGATIVE Hepatitis C Antibody NEGATIVE No new microbiologic data - Physical Exam General Appearance: alert, no apparent distress EENT: pharynx normal, No thrush Respiratory: other (Diminished breath sounds right base with a few crackles, few crackles left base with coarse breath sounds, otherwise clear upper lung chaney.) Cardiac/Chest: regular rate, rhythm, No systolic murmur Abdomen: non-tender, soft Skin: No rash, No embolic lesions ICD10 Worksheet Patient Problems: Problems Problem Status Onset Right lower lobe pneumonia Acute Severe sepsis Acute
--- NOTE | 2018-06-19 15:59 | HOSPPROG ---
Hospitalist Progress Note Assessment/Plan: The patient is a 67-year-old male who was admitted for acute community-acquired pneumonia. ASSESSMENT/PLAN: Acute hypoxemic respiratory failure, on O2 Acute PE Acute community acquired pneumonia - S. pneumo, Parainfluenza - resolving Strep pneumoniae bacteremia - resolving Probable COPD, exacerbation resolved Severe Sepsis w/ MODS, 2/2 above - improving Insomnia, resolved H/o tobacco use H/o asthma Transaminitis - likely 2/2 fatty liver -switch hep gtt to Xarelto. -Cont O2, SVNs, CPT, ISU, ambulation. -Monitor Hgb. -FU hepatitis serologies -Check TSH to r/o potential contribution to transaminases. Pt not taking much acetaminophen. Probably multifactorial - fatty liver + beta lactam AE. VTE prophylaxis: Change hep gtt to Xarelto Code Status: Full. Status: Inpt Disposition: Med surg with discharge in the next 1-2 days. ____ SUBJECTIVE: Today pt c/o epistaxis - has had about 4 episodes in the last couple days. OBJECTIVE: Physical Exam: General: The patient is a male who is alert and in no acute distress. HEENT: normocephalic, extraocular movements intact, conjunctivae clear. Mucous membranes moist. Neck: trachea midline, no visible masses. CV: +S1/S2, RRR, no MRG. Resp: unlabored, CTAB no RRW. Abd: soft and mildly distended. Musculoskeletal: Normal muscle tone/bulk. Neuro: cranial nerves II - XII grossly intact. Intact gross motor and sensory function. Psych: Appropriate mood and appropriate affect. Skin: No pallor. No petechiae. Labs/Imaging/Other Tests: Personally reviewed/interpreted. [place] - BCx - strep pneumoniae. CT abd/pelv - small PE RLL AST/ALT elevated. Objective: Vital Signs Temp Pulse Resp BP Pulse Ox 36.9 C 83 12 120/67 93 06/19/18 07:47 06/19/18 11:10 06/19/18 11:10 06/19/18 07:47 06/19/18 11:10 Microbiology 06/13/18 13:30 Gram Stain - Final Pleural Fluid - Aspirate Laboratory Results 06/18/18 14:50 06/19/18 05:04 06/18/18 06/19/18 06/20/18 05:59 05:59 05:59 Intake Total 500 900 Output Total 679 1475 Balance -175 -575 PT 13.7 SEC (12.0-15.0) 06/18/18 14:50 INR 1.09 (0.83-1.16) 06/18/18 14:50 - Time Spent With Patient Time Spent with Patient: greater than 35 minutes Time Spent with Patient: Greater than 35 minutes spent on this patients care, greater than 50% of time spent counseling, educating, and coordinating care regarding the above mentioned plan. ICD10 Worksheet Patient Problems: Problems Problem Status Onset Right lower lobe pneumonia Acute Severe sepsis Acute
[2018-06-19 17:30] LABS: PLATELET COUNT 525 10^3/uL (150-400)
[2018-06-19] MEDS: RIVAROXABAN 15 MG TAB PO SCH (17:41)
[2018-06-19] MEDS: CEPACOL LOZENGE PO PRN (20:54)
[2018-06-19] MEDS: MELATONIN 3 MG TAB PO PRN (20:54)
[2018-06-20] MEDS: IPRATROPIUM/ALBUTEROL 3 ML DEYVIAL IH SCH ×2 (05:34→10:36)
[2018-06-20] MEDS: RIVAROXABAN 15 MG TAB PO SCH ×2 (09:46→17:45)
[2018-06-20] MEDS: guaiFENesin 600 MG TAB.ER PO SCH ×2 (09:46→20:43)
[2018-06-20] MEDS: predniSONE 20 MG TAB PO SCH (09:46)
[2018-06-20] MEDS: MULTIVITAMINS 1 EACH TAB PO SCH (09:46)
[2018-06-20] MEDS ORDERED: IPRATROPIUM/ALBUTEROL 3 ML DEYVIAL IH PRN (12:01)
--- NOTE | 2018-06-20 15:26 | HOSPPROG ---
Hospitalist Progress Note Assessment/Plan: The patient is a 67-year-old male who was admitted for acute community-acquired pneumonia. ASSESSMENT/PLAN: Acute hypoxemic respiratory failure, on O2 - greatly improved Acute PE Transaminitis - likely 2/2 fatty liver + med (Abx) AE - improved Acute community acquired pneumonia - S. pneumo, Parainfluenza - resolved Strep pneumoniae bacteremia - resolved Probable COPD w/ exacerbation - resolved Severe Sepsis w/ MODS, 2/2 above - resolved Insomnia, resolved H/o tobacco use H/o asthma -tolerating Xarelto. 15mg BID until 07/10 evening change to 20mg daily w/ meal. -Cont O2, will need home O2 [place]. -Pt will have had 13 days of strong Abx by day of discharge. He does not need to be DC'd on po Abx. -Discussed w/ Pulm Dr. Nj. Agree w/ DC steroid. Recommended that pt FU w/ Pulm as outpatient. VTE prophylaxis: Change hep gtt to Xarelto Code Status: Full. Status: Inpt Disposition: Med surg with DC to home w/ O2 tomorrow. Pt does not feel he needs HHC. ____ SUBJECTIVE: Today pt has no complaints. He walked many laps around the hospital yesterday and today. He really wants to go home. OBJECTIVE: Physical Exam: General: The patient is a male who is alert and in no acute distress. HEENT: normocephalic, extraocular movements intact, conjunctivae clear. Mucous membranes moist. Neck: trachea midline, no visible masses. CV: +S1/S2, RRR, no MRG. Resp: unlabored, CTAB no RRW. Abd: soft and mildly distended. Musculoskeletal: Normal muscle tone/bulk. Neuro: cranial nerves II - XII grossly intact. Intact gross motor and sensory function. Psych: Appropriate mood and appropriate affect. Skin: No pallor. No petechiae. Labs/Imaging/Other Tests: Personally reviewed/interpreted. [place] - BCx - strep pneumoniae. CT abd/pelv - small PE RLL AST/ALT elevated. Objective: Vital Signs Temp Pulse Resp BP Pulse Ox 36.4 C 78 16 114/66 94 06/20/18 08:00 06/20/18 08:00 06/20/18 08:00 06/20/18 08:00 06/20/18 08:00 Laboratory Results 06/19/18 17:04 06/20/18 04:16 06/19/18 06/20/18 06/21/18 05:59 05:59 05:59 Intake Total 900 800 Output Total 1475 106 Balance -575 694 PT 13.7 SEC (12.0-15.0) 06/18/18 14:50 INR 1.09 (0.83-1.16) 06/18/18 14:50 - Time Spent With Patient Time Spent with Patient: greater than 35 minutes Time Spent with Patient: Greater than 35 minutes spent on this patients care, greater than 50% of time spent counseling, educating, and coordinating care regarding the above mentioned plan. ICD10 Worksheet Patient Problems: Problems Problem Status Onset Right lower lobe pneumonia Acute Severe sepsis Acute
--- NOTE | 2018-06-20 15:56 | PDINTPN ---
[employer] Progress Note Assessment/Plan: Assessment: Assessment: Healthy 67-year-old admitted 06/08 with pneumonia. Positive pneumococcus in blood. History of vomiting prior to onset of illness. Bacteremic pneumococcal pneumonia, multi lobar, with relative leukopenia initially. Improved initially than worsened a.m. 06/11, more hypoxemic, requiring BiPAP or Vapotherm. Chest x-ray worsened as well 06/11. Treated with azithromycin and ertapenem along with bronchopulmonary therapies and steroids from admission. Bronchoscopy 06/11 showed only a modest amount of residual secretions and normal airways. Bronch culture growing a alpha hemolytic strep, not strep pneumoniae, of unclear significance currently. Clinically he continues to improve. Chest x-ray and CT scan of the chest shows persistent bibasilar infiltrates, but not very large. Small-moderate effusion and right. PH 7.2 on thoracentesis from 06/13. No organisms seen. He remains afebrile, white blood count continues to trend down, feels better, oxygen needs improving, but is chest and CT continue to show right basilar consolidation and small-moderate effusion. He is currently on ceftriaxone Severe sepsis: Resolved. Aspiration pneumonia? He did vomit a number of times prior to the onset of his respiratory illness. Aspiration pneumonia less likely, but was treated with ertapenem. Parainfluenza virus positivity: Of unclear significance. May have predisposed the patient to having a bacterial pneumonia? May be perpetuating his illness and hypoxemia? PE: Small volume right greater than left, although the entire lung was not imaged. Plan: Complete antibiotics per ID. Continue to mobilize and ambulate. Encourage cough, continue IS. Discontinue prednisone. Follow white blood count. CXR tomorrow, consider repeat right thoracentesis if not improving, but would have to stop Xarelto. Hopefully home tomorrow. 06/20/18 15:54 06/20/18 15:56 Subjective: Feels better, with decreased dyspnea and almost no cough. Energy improved. Objective: Vital Signs Temp Pulse Resp BP Pulse Ox 36.4 C 78 16 114/66 94 06/20/18 08:00 06/20/18 08:00 06/20/18 08:00 06/20/18 08:00 06/20/18 08:00 Laboratory Results 06/19/18 17:04 06/20/18 04:16 06/19/18 06/20/18 06/21/18 05:59 05:59 05:59 Intake Total 900 800 Output Total 1475 106 Balance -575 694 PT 13.7 SEC (12.0-15.0) 06/18/18 14:50 INR 1.09 (0.83-1.16) 06/18/18 14:50 Physical Exam - Physical Exam General Appearance: alert, no apparent distress EENT: normal ENT inspection Neck: normal inspection Respiratory: decreased breath sounds (right base) Cardiac/Chest: regular rate, rhythm, No edema Abdomen: normal bowel sounds, non-tender, soft Skin: normal color, warm/dry Extremities: normal inspection Neuro/Psych: alert, normal mood/affect, oriented x 3 ICD10 Worksheet Patient Problems: Problems Problem Status Onset Right lower lobe pneumonia Acute Severe sepsis Acute
[2018-06-20] MEDS: MELATONIN 3 MG TAB PO PRN (20:46)
[2018-06-20] MEDS: CEPACOL LOZENGE PO PRN (20:46)
[2018-06-21 02:55] LABS: HEPATITIS A ANTIBODY TOTAL NEGATIVE (NEGATIVE)
[2018-06-21 07:47] VITALS: BP 127/66
[2018-06-21] MEDS: RIVAROXABAN 15 MG TAB PO SCH (07:56)
[2018-06-21] MEDS: guaiFENesin 600 MG TAB.ER PO SCH (07:56)
[2018-06-21] MEDS: MULTIVITAMINS 1 EACH TAB PO SCH (07:56)
--- NOTE | 2018-06-21 09:55 | PDHOMEO2F ---
Home Oxygen Face to Face Home Orders: I certify that a physician or a nurse practitioner or physician's research program assistant has had a [id number] encounter with this patient on the date of this order due to the diagnosis listed, which relates to the primary reason the patient requires home oxygen. Alternative treatments have been tried, or considered, and deemed ineffective. It is anticipated that supplemental oxygen will result in improvement with treatment. Home oxygen qualifying diagnosis: COPD Home oxygen secondary diagnosis: pneumonia SpO2 on room air (%): 85 Frequency of home oxygen needed: continuous Home oxygen liters per minute: 4 Home oxygen delivery device: nasal cannula Concentrator: Yes E-tanks for mobility and back up: Yes If ordering portable O2, is the patient mobile in the home?: Yes I certify that, based on these findings, the home oxygen is medically necessary for this patient for the following length of time. Length of time home oxygen needed: 1 month (needs reevaluation for oxygen at 1 month)
--- NOTE | 2018-06-21 09:58 | PDHOMEO2F ---
Home Oxygen Face to Face Home Orders: I certify that a physician or a nurse practitioner or physician's under water assistant has had a [id number] encounter with this patient on the date of this order due to the diagnosis listed, which relates to the primary reason the patient requires home oxygen. Alternative treatments have been tried, or considered, and deemed ineffective. It is anticipated that supplemental oxygen will result in improvement with treatment. Home oxygen qualifying diagnosis: copd Home oxygen secondary diagnosis: pneumonia SpO2 on room air (%): 85% Frequency of home oxygen needed: continuous Home oxygen liters per minute: 4 Home oxygen delivery device: nasal cannula Concentrator: Yes E-tanks for mobility and back up: Yes If ordering portable O2, is the patient mobile in the home?: Yes I certify that, based on these findings, the home oxygen is medically necessary for this patient for the following length of time. Length of time home oxygen needed: 1 month (reassess after 1 lucian)
--- NOTE | 2018-06-21 10:39 | PDIAF ---
- Diagnosis Code Status: Full Code - Medication Management Discharge Medications: electronically signed and located in the Home Medication List. - Orders Isolation Type: Droplet Isolation Diet Recommendation: no restrictions on diet Diet Texture: Regular Texture Diet, Thin Liquids Additional Instructions: Recommend to get a repeat CT or US of abdomen in 6 months to reevaluate an abnormal liver finding. On 07/11 in the evening, you will start to take Xarelto 20mg daily with evening meal (and stop taking Xarelto 10mg twice a day). Follow up with your PCP in the next week. - Follow Up Care Current Providers and Referrals: Yesenia Elena MD [Primary Care Provider] - As per Instructions (To discuss ongoing needs after hospitalization.) Bharat Schmitt MD [Medical Doctor] - (To establish care with Pulmonology and follow up on lung issues. Consider to get tested for COPD.) Maximilian Pathak MD [Medical Doctor] - 06/30/18 1:00 pm
--- NOTE | 2018-06-21 10:39 | ASMTLACE ---
[facility] Length of stay for Answers: 7-13 days current admission Acuity / Level of Answers: Yes Care: Did the patient have an inpatient admission? # of Emergency department Answers: 1-2 visits in the last 6 months Score: 9 Date Signed: 06/21/2018 10:22 AM Electronically Signed By:Beena Johnson RN
--- NOTE | 2018-06-21 11:35 | ASMTDCNOTE ---
Case Management Discharge Discharge Order Complete? Answers: Yes Patient to Obtain Answers: Independently Medications Transportation Arranged Answers: Family/Friends Family Notified Answers: Yes Discharge Comments Notes: Patient medically cleared for independent discharge. No needs identified. CM available should any needs arise. Date Signed: 06/21/2018 10:28 AM Electronically Signed By:Beena Johnson RN
--- NOTE | 2018-06-21 20:54 | GDS ---
[f rep st] DISCHARGE SUMMARY DIAGNOSES: 1. Bacteremic pneumococcal pneumonia, multilobar with sepsis and acute hypoxic respiratory failure. 2. Chronic obstructive pulmonary disease. 3. Parainfluenza virus positivity. 4. Possible aspiration. 5. Pulmonary embolus, small volume. 6. History of tobacco use. PROCEDURES DONE: 1. Echocardiogram: Left ventricle normal in size. Normal left ventricular systolic function. 2. Bronchoscopy. 3. Chest CT: Multifocal bilateral pneumonia, both lower lobes. 4. Chest ultrasound-guided thoracentesis with a right pleural effusion. DICTATION ENDS HERE /[id number]/MODL
[2018-07-10] MEDS ORDERED: RIVAROXABAN 20 MG TAB PO SCH (18:00)
== END 2018-06-21 13:39 | disposition home or self-care (01) | DRG 871 ==
LOC: F3E 14:13 → F2N 06-08 00:15 → OBSVTOIN 06-08 14:56 → F2N 06-08 16:53 → F1N 06-15 12:23
PROVIDERS: ADMIT Internal Medicine; ATTEND Student in an Organized Health Care Education/Training Program
PROC: 0B978ZZ Drainage of Left Main Bronchus, Via Natural or Artificial Opening Endoscopic (ICD-10-PCS; principal; 2018-06-11)
PROC: 0B938ZZ Drainage of Right Main Bronchus, Via Natural or Artificial Opening Endoscopic (ICD-10-PCS; principal; 2018-06-11)
PROC: 0W993ZZ Drainage of Right Pleural Cavity, Percutaneous Approach (ICD-10-PCS; 2018-06-13)
DX: A40.3 Sepsis due to Streptococcus pneumoniae (principal); J13 Pneumonia due to Streptococcus pneumoniae; R65.20 Severe sepsis without septic shock; J96.01 Acute respiratory failure with hypoxia; I26.99 Other pulmonary embolism without acute cor pulmonale; J44.1 Chronic obstructive pulmonary disease with (acute) exacerbation; J44.0 Chronic obstructive pulmonary disease with (acute) lower respiratory infection; J90 Pleural effusion, not elsewhere classified; B34.8 Other viral infections of unspecified site; G47.00 Insomnia, unspecified; Z87.891 Personal history of nicotine dependence
CPT/HCPCS: 83605-ER; 85520-90; 86704-90; 86708-90; 87449-90; 92526-GN; 92610-GN; 96365; 97116-GP; 97161-GP; 97164-GP; 97165-GO; 97530-GO; 97535-GO; G0378; G0472; J0295; J0456; J0696; J1335; J1644; J1650; J1940; J2250; J2930; J3010; J7512; J7613; Q9967